=== PATIENT | male | born 1945 | race Caucasian/White ===

== ENCOUNTER 2016-09-09 15:17 | Emergency (ER) | payer OTHER ==
[~2016-09-09] VITALS: Ht 188 cm; Wt 120.5 kg
[2016-09-09 15:20] VITALS: BP 100/58; PULSE 67; RESP 12; TEMP 98.4; O2SAT 97
[2016-09-10] MEDS ORDERED: MORP1TAB24 PO (13:36)
[2016-09-10] MEDS ORDERED: OXYC-395 PO (13:36)
[2016-09-10] MEDS ORDERED: FERR325T PO (15:06)
[2016-09-10] MEDS ORDERED: PRAZ1 PO (15:06)
[2016-09-10] MEDS ORDERED: METO-309 PO (15:06)
[2016-09-10] MEDS ORDERED: MINO100 PO (15:06)
[2016-09-10] MEDS ORDERED: IPRAAER INH (15:06)
[2016-09-10] MEDS ORDERED: APRE1TAB3 PO (15:06)
[2016-09-10] MEDS ORDERED: AQUAOIN2 TOP (15:06)
[2016-09-10] MEDS ORDERED: GABA600T PO (15:06)
[2016-09-10] MEDS ORDERED: PROZ20CA11 PO (15:06)
[2016-09-10] MEDS ORDERED: POTA-163 PO (15:06)
[2016-09-10] MEDS ORDERED: LEVO125T4 PO (15:06)
[2016-09-10] MEDS ORDERED: FOLI1TAB4 PO (15:06)
[2016-09-10] MEDS ORDERED: SYMB160A INH (15:06)
[2016-09-10] MEDS ORDERED: OMEP20TA PO (15:06)
[2016-09-10] MEDS ORDERED: ALLO300T2 PO (15:06)
[2016-12-17] MEDS ORDERED: OMEP20TA PO (10:30)
[2016-12-17] MEDS ORDERED: FLUO20CA4 PO (10:30)
[2016-12-17] MEDS ORDERED: HYDR-3583 PO (10:30)
[2016-12-17] MEDS ORDERED: THERTAB15 PO (10:30)
[2016-12-17] MEDS ORDERED: SYMB160A INH (10:30)
[2016-12-17] MEDS ORDERED: MORP1TAB24 PO (10:30)
[2016-12-17] MEDS ORDERED: NEUR300C PO (10:30)
[2016-12-17] MEDS ORDERED: DOCU1CAP39 PO (10:30)
[2016-12-17] MEDS ORDERED: LEVE500 PO (10:30)
[2016-12-17] MEDS ORDERED: LEVO125T4 PO (10:30)
[2016-12-17] MEDS ORDERED: ALLO300T2 PO (10:30)
== END 2016-09-09 17:04 | disposition left against medical advice (07) ==
LOC: NED 15:17
DX: Z00.00 Encounter for general adult medical examination without abnormal findings (principal)
CPT/HCPCS: 99281

== ENCOUNTER 2016-09-10 11:14 | Inpatient (IN) | payer OTHER, MEDICARE ==
[~2016-09-10] VITALS: Ht 188 cm; Wt 116.7 kg
[2016-09-10 11:18] VITALS: BP 118/56; PULSE 62; RESP 14; TEMP 98.5; O2SAT 94
--- NOTE | 2016-09-10 13:27 | PD ---
HPI Chief Complaint: Musculoskeletal Complaint Time Seen by Provider: 13:23 Travel History International Travel<30 days: No Contact w/Intl Traveler<30days: No Traveled to known affect area: No History of Present Illness HPI Patient comes in at the advice of his orthopedic surgeon for vascular consult and possible admission for decompression. Patient reports approximately a month ago he fell injuring his right arm. Patient states he had x-rays done that showed no fracture. Patient states approximately 3 days later he lost all sensation from his elbow down. Patient reports it just feels like his arm is from elbow down. Patient went back to the emergency department was admitted and evaluated. 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 Patient states that he had an MRI done this past Friday by his orthopedic doctor after getting the results was instructed to come back to the emergency department for possible vascular surgery intervention. Patient reports he was on Coumadin prior to this injury but was stopped approximately 3 weeks ago while he was in the hospital. PFSH Past Medical History Hx Anticoagulant Therapy: Yes (came off of coumadin 10 days ago) Cardiovascular Problems: Yes (htn) COPD: Yes Gout: Yes Hypertension: Yes Musculoskeletal: Yes (SPINAL CORD INJURY) Respiratory: Yes (copd) Past Surgical History Appendectomy: Yes Eye Surgery: Yes (RT EYE REMOVED) Tonsillectomy: Yes Other Surgery: Yes (BENIGN GROWTH REMOVED FROM NECK) Social History Alcohol Use: No Tobacco Use: No Substance Use: No Allergies-Medications (Allergen,Severity, Reaction): Coded Allergies: No Known Allergies (Unverified , 09/10/16) Reported Meds & Prescriptions Reported Meds & Active Scripts Active Reported Aquaphor (Emollient) 1 Oin Oin 1 Applic TOP TID PRN Omeprazole 20 Mg Tab 40 Mg PO DAILY Lopressor (Metoprolol Tartrate) 50 Mg Tab 25 Mg PO DAILY Levothyroxine (Levothyroxine Sodium) 125 Mcg Tab 125 Mcg PO DAILY Folate (Folic Acid) 1 Mg Tab 1 Mg PO DAILY Allopurinol 300 Mg Tab 300 Mg PO DAILY Minocycline (Minocycline HCl) 100 Mg Cap 100 Mg PO BID Minipress (Prazosin HCl) 1 Mg Cap 1 Mg PO HS PRN *Hold if Blood Pressure less than 90/60Do not take with narcotic medications to avoid hypotension* Prozac (Fluoxetine HCl) 20 Mg Cap 60 Mg PO DAILY Potassium Chloride ER (Potassium Chloride) 20 Meq Tab 20 Meq PO DAILY Ferrous Sulfate 325 Mg Tab 325 Mg PO BID Gabapentin 600 Mg Tab 600 Mg PO TID Symbicort Inh (Budesonide/Formoterol Fumarate) 160-4.5 Mcg/Act Aero 2 Puff INH Q12HR Combivent Respimat Inh (Ipratropium-Albuterol Inh) 20-100 Intermediate/Act Aero 1 Puff INH QID Otezla (Apremilast) 30 Mg Tab 30 Mg PO BID Oxycodone (Oxycodone HCl) 10 Mg Tab 10 Mg PO BID Morphine ER (Morphine Sulfate) 15 Mg Tab 15 Mg PO BID Review of Systems Except as stated in HPI: all other systems reviewed are Neg Physical Exam Narrative GENERAL: Well-developed, overly nourished, in no acute distress, and non-ill appearing. SKIN: Warm and dry. HEAD: Atraumatic. Normocephalic. EYES: Pupils equal and round. EOMI. No scleral icterus. No injection or drainage. ENT: No nasal bleeding or discharge. Mucous membranes pink and moist. NECK: Trachea midline. No JVD. Supple. No nuclear rigidity. CARDIOVASCULAR: Radial pulses 2+ intact bilaterally. Murmur appreciated. Regular rate and irregular rhythm. RESPIRATORY: No accessory muscle use. No respiratory distress. Clear to auscultation. Breath sounds equal bilaterally. MUSCULOSKELETAL: No obvious deformities. No clubbing. No cyanosis. 1+ edema RUE distal to elbow. Absent range of motion right upper extremity distally and patient reports a sensation as well. NEUROLOGICAL: Awake and alert. No obvious cranial nerve deficits. Normal speech. PSYCHIATRIC: Appropriate mood and affect; insight and judgment normal. Data Data Last Documented VS Vital Signs Date Time Temp Pulse Resp B/P Pulse Ox O2 Delivery O2 Flow Rate FiO2 09/10/16 14:43 99 Room Air 09/10/16 14:43 18 09/10/16 12:57 73 09/10/16 11:29 09/10/16 11:18 98.5 Orders Electrocardiogram (09/10/16 14:12) Basic Metabolic Panel (Bmp) (09/10/16 14:12) Complete Blood Count With Diff (09/10/16 14:12) Prothrombin Time / Inr (Pt) (09/10/16 14:12) Act Partial Throm Time (Ptt) (09/10/16 14:12) Ecg Monitoring (09/10/16 14:12) Iv Access Insert/Monitor (09/10/16 14:12) Oximetry (09/10/16 14:12) Oxygen Administration (09/10/16 14:12) Sodium Chloride 0.9% Flush (Ns Flush) (09/10/16 14:15) Us Arm Venous Doppler (09/10/16 ) Consult Vascular Surgery (09/10/16 ) (Hub Use Only)Inp Phy Cons/Ref (09/10/16 ) Admit Order (Ed Use Only) (09/10/16 15:33) Labs Laboratory Tests Test 09/10/16 14:30 White Blood Count 5.8 TH/MM3 Red Blood Count 3.43 MIL/MM3 Hemoglobin 10.4 GM/DL Hematocrit 31.3 % Mean Corpuscular Volume 91.2 FL Mean Corpuscular Hemoglobin 30.2 PG Mean Corpuscular Hemoglobin 33.1 % Concent Red Cell Distribution Width 16.3 % Platelet Count 174 TH/MM3 Mean Platelet Volume 10.0 FL Neutrophils (%) (Auto) 70.2 % Lymphocytes (%) (Auto) 13.8 % Monocytes (%) (Auto) 9.9 % Eosinophils (%) (Auto) 5.2 % Basophils (%) (Auto) 0.9 % Neutrophils # (Auto) 4.1 TH/MM3 Lymphocytes # (Auto) 0.8 TH/MM3 Monocytes # (Auto) 0.6 TH/MM3 Eosinophils # (Auto) 0.3 TH/MM3 Basophils # (Auto) 0.1 TH/MM3 CBC Comment DIFF FINAL Differential Comment Prothrombin Time 11.4 SEC Prothromb Time International 1.0 RATIO Ratio Activated Partial 24.8 SEC Thromboplast Time Sodium Level 140 MEQ/L Potassium Level 4.2 MEQ/L Chloride Level 105 MEQ/L Carbon Dioxide Level 29.9 MEQ/L Anion Gap 5 MEQ/L Blood Urea Nitrogen 16 MG/DL Creatinine 1.02 MG/DL Estimat Glomerular Filtration 72 ML/MIN Rate Random Glucose 79 MG/DL Calcium Level 8.8 MG/DL MDM Medical Decision Making Medical Screen Exam Complete: Yes Emergency Medical Condition: Yes Interpretation(s) EKG reviewed by Dr. Dc, shows atrial fibrillation with ventricular rate of 64. No STEMI. Differential Diagnosis Nerve palsy, nerve compression, DVT, other Narrative Course Patient was seen and examined. Discussed patient with Dr. Deng, who came and evaluated the patient and recommended patient be admitted for further treatment and evaluation. Discussed patient with Dr. Dc, who is in agreement with plan of care and disposition. Discussed all findings and plan care of with patient, who is agreeable for admission. All questions were answered. Physician Communication Physician Communication [address] Deng, who states he'll come evaluate the patient in the emergency department. 1400 Dr. Deng at bedside evaluating patient and recommend having patient admitted to medicine for further treatment and evaluation. [address] Marie, on-call resident, who is agreeable to accept patient for Dr. Soliz. Diagnosis Primary Impression: Nerve palsy Admitting Information Admitting Physician Requests: Admit Condition: Stable Dominic Oh Sep 10, 2016 13:27
[2016-09-10] MEDS ORDERED: OXYC-395 PO (13:36)
[2016-09-10] MEDS ORDERED: MORP1TAB24 PO (13:36)
[2016-09-10] MEDS ORDERED: SODIUM CHLORIDE 0.9% FLUSH 5 ML FLUSH IVF PRN (14:15)
[2016-09-10 14:43] VITALS: RESP 18; O2SAT 100
[2016-09-10 14:51] LABS: AUTOMATED NEUTROPHIL # 4.1 TH/MM3 (1.8-7.7); BASOPHIL # 0.1 TH/MM3 (0-0.2); BASOPHIL % 0.9 % (0.0-2.0); EOSINOPHIL # 0.3 TH/MM3 (0-0.4); EOSINOPHIL % 5.2 % (0.0-4.0); HEMATOCRIT 31.3 % (39.0-51.0); HEMO FLAGS DIFF FINAL; LYMPH % 13.8 % (9.0-44.0); LYMPHOCYTE # 0.8 TH/MM3 (1.0-4.8); MEAN CELL VOLUME 91.2 FL (80.0-100.0); MEAN CORPUSCULAR HEMOGLOBIN 30.2 PG (27.0-34.0); MEAN CORPUSCULAR HGB CONC 33.1 % (32.0-36.0); MONO % 9.9 % (0.0-8.0); NEUT % 70.2 % (16.0-70.0); PLATELET COUNT 174 TH/MM3 (150-450); RED BLOOD COUNT 3.43 MIL/MM3 (4.50-5.90); RED CELL DISTRIBUTION WIDTH 16.3 % (11.6-17.2); WHITE BLOOD COUNT 5.8 TH/MM3 (4.0-11.0)
[2016-09-10 14:57] LABS: APTT (PATIENT) 24.8 SEC (24.3-30.1); PROTHROMBIN TIME - PATIENT 11.4 SEC (9.8-11.6)
[2016-09-10] MEDS ORDERED: MINO100 PO (15:06)
[2016-09-10] MEDS ORDERED: LEVO125T4 PO (15:06)
[2016-09-10] MEDS ORDERED: PROZ20CA11 PO (15:06)
[2016-09-10] MEDS ORDERED: POTA-163 PO (15:06)
[2016-09-10] MEDS ORDERED: APRE1TAB3 PO (15:06)
[2016-09-10] MEDS ORDERED: METO-309 PO (15:06)
[2016-09-10] MEDS ORDERED: IPRAAER INH (15:06)
[2016-09-10] MEDS ORDERED: SYMB160A INH (15:06)
[2016-09-10] MEDS ORDERED: AQUAOIN2 TOP (15:06)
[2016-09-10] MEDS ORDERED: OMEP20TA PO (15:06)
[2016-09-10] MEDS ORDERED: GABA600T PO (15:06)
[2016-09-10] MEDS ORDERED: PRAZ1 PO (15:06)
[2016-09-10] MEDS ORDERED: FERR325T PO (15:06)
[2016-09-10] MEDS ORDERED: ALLO300T2 PO (15:06)
[2016-09-10] MEDS ORDERED: FOLI1TAB4 PO (15:06)
[2016-09-10 15:23] LABS: BICARBONATE 29.9 MEQ/L (21.0-32.0); POTASSIUM 4.2 MEQ/L (3.5-5.1)
--- NOTE | 2016-09-10 15:23 | RADRPT ---
EXAM DATE/TIME: 09/10/2016 14:37 This report includes an Addendum and supersedes previous reports for this exam. [facility] COMPARISON: No previous studies available for comparison. INDICATIONS : Right arm swelling. MEDICAL HISTORY : Hypertension. Chronic obstructive pulmonary disease. Anticoagulant therapy. AFIB. Gout. SURGICAL HISTORY : Tonsillectomy. Appendectomy. Right eye removal. C3-C7 spinal fusion. ENCOUNTER: Initial ACUITY: 1 month PAIN SCORE: 3/10 LOCATION: Right arm. FINDINGS: There is spontaneous flow documented in the brachial, basilic, cephalic, axillary, and subclavian vei ns. The vessels are compressible and augmentation response is documented. No filling defects are se en. The flow is phasic with respiration. Direction of flow in the jugular vein is caudal. A complex, 11.7 x 5.4 x 9.0 cm collection is seen in the right axilla. Patient does report a previous history of trauma to the right arm and this may represent an axillary hematoma. The extensive size o f the hematoma could be compressing on the regional venous structures in contributing to the patient' s clinical symptoms. CONCLUSION: 1. No DVT. 2. However, complex, 1.7 x 5.4 x 9.0 cm left axillary collection may represent hematoma/seroma from p rior trauma. This could be compressing on regional venous structures in contributing to the patient's current clinical symptoms. Marquis Tariq MD on September 10, 2016 at 15:19 Board Certified Radiologist. This report was verified electronically. ADDENDUM: Please note, in conclusion #2 above, this should refer to the right axilla, not the left. Marquis Tariq MD on September 11, 2016 at 11:24 Board Certified Radiologist. This report was verified electronically.
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
[2016-09-10] MEDS ORDERED: SODIUM CHLORIDE 0.9% FLUSH 5 ML FLUSH FLUSH PRN (16:15)
[2016-09-10] MEDS ORDERED: NALOXONE HCL 0.4 MG/ML AMP IV PRN (16:15)
[2016-09-10] MEDS ORDERED: HYDROmorphone HCL PF 1 MG/ML VIAL IV PUSH PRN (16:45)
[2016-09-10] MEDS: LACTATED RINGER'S 1000 ML INJ 1,000 ML IV SCH (17:00)
[2016-09-10] MEDS ORDERED: PRAZOSIN HCL 1 MG CAP PO PRN (17:00)
[2016-09-10] MEDS ORDERED: DOCUSATE SODIUM 50 MG/SENNA 8.6 MG TAB PO PRN (17:00)
[2016-09-10] MEDS ORDERED: AQUAPHOR OINT 50 APPLIC/50 GM TUBE TOP PRN (17:00)
[2016-09-10] MEDS ORDERED: cloNIDine HCL 0.1 MG TAB PO PRN (17:00)
[2016-09-10] MEDS ORDERED: ACETAMINOPHEN 325 MG TAB PO PRN (17:00)
[2016-09-10] MEDS ORDERED: ONDANSETRON HCL 4 MG/2 ML VIAL IVP PRN (17:00)
[2016-09-10] MEDS: GABAPENTIN 300 MG CAP PO SCH (18:00)
[2016-09-10] MEDS: ALBUTEROL SULFATE 90 MCG/ACT HFA 8 GM INHALER INH SCH ×2 (18:00→23:00)
[2016-09-10] MEDS ORDERED: NON-FORMULARY DRUG (Ipratropium-Albuterol Inh (Combivent Respimat Inh) 1 PUFF) INH SCH (18:00)
[2016-09-10] MEDS ORDERED: GADODIAMIDE PF 287 MG/ML 5 ML VIAL (for RAD MRI) IV ONE (18:35)
[2016-09-10 19:02] VITALS: BP 150/76; PULSE 71; RESP 18; O2SAT 98
--- NOTE | 2016-09-10 19:08 | RADRPT ---
EXAM DATE/TIME: 09/10/2016 18:07 This report includes an Addendum and supersedes previous reports for this exam. [facility] COMPARISON: No previous studies available for comparison. INDICATIONS : Trauma. Unable to move right arm after fall. See notes below. CONTRAST: 25 cc Omniscan (gadodiamide) IV MEDICAL HISTORY : Chronic obstructive pulmonary disease. Hypertension. SURGICAL HISTORY : Appendectomy. Fusion, cervical. Tonsillectomy. ENCOUNTER: Initial ACUITY: 2 day PAIN SCORE: 0/10 LOCATION: Right arm TECHNIQUE: Multiplanar multisequence MRI examination of the humerus was performed with and without contrast. FINDINGS: There is a large complex 16.4 x 7.5 x 9.1 cm fluid collection centered in left axillary region and ex tending distally along the medial shaft of the humerus. Fluid collection is predominantly between the biceps and triceps musculature medially. Complex fluid collection has increased T1 signal and also i ncreased T2 signal with minimal rim enhancement postcontrast. Finding is most characteristic of a axi llary hematoma, especially given the history of trauma. There is extrinsic compression on the axillar y and brachial venous structures and some displacement of the vascular structures posteriorly. CONCLUSION: 1. Large left axillary hematoma extending up to 16.4 x 7.5 x 9.1 cm in dimension and extending inferi olive along the medial aspect of the humerus. There is displacement and extrinsic impression on the ax illary and brachial venous structures and posterior displacement of the arteries. No acute bony abnor mality. Yeison Davila MD on September 10, 2016 at 18:59 Board Certified Radiologist. This report was verified electronically. ADDENDUM: Please note, this study was of the right axilla and upper extremity. As such, in conclusion #1, the h ematoma involves the right axilla. Marquis Tariq MD on September 11, 2016 at 11:27 Board Certified Radiologist. This report was verified electronically.
[2016-09-10 19:52] VITALS: BP 141/68; PULSE 69; RESP 16; TEMP 98.4; O2SAT 99
[2016-09-10] MEDS: SODIUM CHLORIDE 0.9% FLUSH 5 ML FLUSH FLUSH SCH (21:00)
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
--- NOTE | 2016-09-10 21:49 | RADRPT ---
EXAM DATE/TIME: 09/10/2016 20:47 [facility] COMPARISON: No previous studies available for comparison. INDICATIONS : Evaluate for pneumonia, pneumothorax, or communicable disease. Pre op for vessel surgery. MEDICAL HISTORY : None. SURGICAL HISTORY : None. ENCOUNTER: Initial ACUITY: 1 day PAIN SCORE: 0/10 LOCATION: Bilateral chest FINDINGS: PA and lateral views of the chest demonstrate a mild basilar airspace disease and small effusions. He art size mildly enlarged. Atherosclerotic aorta. CONCLUSION: 1. Mild basilar airspace disease which may represent atelectasis with small effusions. Yeison Davila MD on September 10, 2016 at 21:43 Board Certified Radiologist. This report was verified electronically.
[2016-09-10] MEDS: FERROUS SULFATE 325 MG (65 MG ELEMENTAL IRON) TAB PO SCH (22:16)
[2016-09-10 22:52] VITALS: BP 116/94; PULSE 83; RESP 18; TEMP 97; O2SAT 98
[2016-09-10] MEDS: BUDESONIDE-FORMOTEROL 160/4.5 MCG INHALER INH SCH (23:00)
[2016-09-10] MEDS: MORPHINE SULFATE 15 MG CONTROLLED RELEASE TAB PO SCH (23:09)
[2016-09-11] VITALS: BP 94/72; PULSE 75; RESP 18; TEMP 96.2; O2SAT 99
[2016-09-11 04:00] VITALS: BP 123/73; PULSE 72; RESP 18; TEMP 97.6; O2SAT 96
[2016-09-11] MEDS: LEVOTHYROXINE SODIUM 125 MCG TAB PO SCH (05:19)
[2016-09-11 08:00] VITALS: BP 149/81; PULSE 77; RESP 18; TEMP 97; O2SAT 97
[2016-09-11 08:33] LABS: AUTOMATED NEUTROPHIL # 2.9 TH/MM3 (1.8-7.7); BASOPHIL # 0.1 TH/MM3 (0-0.2); BASOPHIL % 1.2 % (0.0-2.0); EOSINOPHIL # 0.3 TH/MM3 (0-0.4); EOSINOPHIL % 6.7 % (0.0-4.0); HEMATOCRIT 30.6 % (39.0-51.0); HEMO FLAGS DIFF FINAL; LYMPH % 19.1 % (9.0-44.0); LYMPHOCYTE # 0.9 TH/MM3 (1.0-4.8); MEAN CELL VOLUME 90.1 FL (80.0-100.0); MEAN CORPUSCULAR HGB CONC 33.2 % (32.0-36.0); MONO % 13.1 % (0.0-8.0); NEUT % 59.9 % (16.0-70.0); PLATELET COUNT 160 TH/MM3 (150-450); RED BLOOD COUNT 3.39 MIL/MM3 (4.50-5.90); RED CELL DISTRIBUTION WIDTH 15.8 % (11.6-17.2); WHITE BLOOD COUNT 4.8 TH/MM3 (4.0-11.0)
--- NOTE | 2016-09-11 08:46 | HHI.FPPN ---
Subjective Remarks FM Attending Note: Patient seen and examined. S: Chart and all resident physician notes reviewed. In summary this is a 71 year old male who was admitted with an admission diagnosis of a right arm Nerve Palsy. He reports an initial injury about 4 weeks [address] outlined [address] Miguel, but subsequent minor injuries also occurred. Has not been able to move his right arm for at least 2 weeks. MRI shows large hematoma of the upper arm. No significant pain noted. Long h/o atrial fibrillation for which he has been on warfarin therapyl Objective Vitals Vital Signs Date Time Temp Pulse Resp B/P Pulse Ox O2 Delivery O2 Flow Rate FiO2 09/11/16 08:00 97.0 77 18 149/81 97 09/11/16 04:00 97.6 72 18 123/73 96 09/11/16 00:00 96.2 75 18 94/72 99 09/10/16 22:52 97.0 83 18 116/94 98 09/10/16 19:52 98.4 69 16 141/68 99 Room Air 09/10/16 19:02 71 18 150/76 98 Room Air 09/10/16 14:43 99 Room Air 09/10/16 14:43 18 100 Room Air 09/10/16 12:57 73 18 09/10/16 11:29 09/10/16 11:18 98.5 62 14 118/56 94 Room Air I/O 09/10/16 09/10/16 09/10/16 09/11/16 09/11/16 09/11/16 07:00 15:00 23:00 07:00 15:00 23:00 Intake Total 482 ml Output Total 420 ml Balance 62 ml Intake IV Total 482 ml Output Urine Total 420 ml # Voids 1 # Bowel Movements 1 Result Diagram: 09/10/16 1430 09/10/16 1430 Other Results Item Value Date Time Prothrombin Time 11.4 SEC 09/10/16 1430 Prothromb Time International Ratio 1.0 RATIO 09/10/16 1430 Activated Partial Thromboplast Time 24.8 SEC 09/10/16 1430 Imaging Last 48 hours Impressions Upper Extremity Ultrasound 09/10/16 0000 Signed Impressions: Service Date/Time: Saturday, September 10, 2016 14:37 - CONCLUSION: 1. No DVT. 2. However, complex, 1.7 x 5.4 x 9.0 cm left axillary collection may represent hematoma/seroma from prior trauma. This could be compressing on regional venous structures in contributing to the patient's current clinical symptoms. Marquis Tariq MD ADDENDUM: Please note, in conclusion #2 above, this should refer to the right axilla, not the left. Marquis Tariq MD Upper Extremity MRI 09/10/16 0000 Signed Impressions: Service Date/Time: Saturday, September 10, 2016 18:07 - CONCLUSION: 1. Large left axillary hematoma extending up to 16.4 x 7.5 x 9.1 cm in dimension and extending inferiorly along the medial aspect of the humerus. There is displacement and extrinsic impression on the axillary and brachial venous structures and posterior displacement of the arteries. No acute bony abnormality. Yeison Davila MD ADDENDUM: Please note, this study was of the right axilla and upper extremity. As such, in conclusion #1, the hematoma involves the right axilla. Marquis Tariq MD Chest X-Ray 09/10/16 Signed Impressions: Service Date/Time: Saturday, September 10, 2016 20:47 - CONCLUSION: 1. Mild basilar airspace disease which may represent atelectasis with small effusions. Yeison Davila MD Objective Remarks O. CONSTITUTIONAL/GEN: normally nourished with elevated BMI, in NAD. EYES: conjunctiva normal, PERRLA, EOMI. LUNGS: clear A-P, respiratory effort is normal. CARDIOVASCULAR: IRR without murmur or gallop. 1+ edema of LLE with stasis related skin changes, trace edema of RLE. No calf tenderness. GI/ABD: soft without masses, without organomegaly. NEURO: deficit of motor function of entire right arm. SKIN: color normal, no rashes noted. HEME/LYMPH: no bruising, petechia or significant adenopathy MUSC: back is normal in appearance. Palpable mass over medial upper arm in area of hematoma noted on MRI. PSYCH/MENTAL STATUS: Alert and oriented x 3. A/P Assessment and Plan 71-year-old male with a complicated past medical history who presents with complete right lower arm palsy 3 weeks Problem List: (1) Nerve palsy Status: Acute Plan: Patient appears to have complete paralysis of his RLE from the elbow down with involvement of the radial, median, and ulnar nerves. Recent MRI w/o contrast reportedly revealed a large hematoma in the right arm with possible nerve compression. Intervention by vascular surgery was recommended for treatment. Vascular surgery has been consulted, Dr. Marinelli recommends MRI w contrast to further eval as well as consultation by neurology. US of right arm shows no evidence of clot. Will proceed with following plan: - Admit to inpatient - Consult vascular surgery, Dr. Marinelli-- appreciate rec's - Consult neurology - NPO in anticipation for surgery - Continue CHASER HELPER morphine ER 15mg BID - Percocet 10/325 q6hrs prn pain 4-10 - Dilaudid 1mg prn breakthrough pain - Consult PT/OT - Consult case management as patient will likely require inpatient rehab following intervention 09/11/16 Patient has been seen by vascular surgery. Scheduled for drainage procedure to attempt to decrease pressure from hematoma. (2) COPD (chronic obstructive pulmonary disease) Status: Chronic Plan: Currently well controlled. - Continue CHASER HELPER Symbicort 2 puffs twice a day - Continue CHASER HELPER Combivent 1 puff 4 times a day (3) Atrial fibrillation Status: Chronic Plan: Currently rate controlled - Holding home Coumadin due to hematoma - Continue CHASER HELPER Lopressor 25 mg daily (4) Gout Status: Chronic Plan: No evidence of flare. - Continue CHASER HELPER allopurinol 300 mg daily (5) Depression Status: Chronic Plan: Mood is currently stable without suicidal ideation - Continue CHASER HELPER Prozac 60 mg daily (6) Hypothyroidism Status: Chronic Plan: Currently stable - Continue CHASER HELPER levothyroxine 125 g daily (7) Psoriasis Status: Chronic Plan: No evidence of flare - Continue CHASER HELPER Otezla 30mg BID (8) GERD (gastroesophageal reflux disease) Status: Chronic Plan: Continue CHASER HELPER omeprazole 40 mg daily (9) BPH (benign prostatic hyperplasia) Status: Chronic Plan: Continue CHASER HELPER prazosin 1 mg daily (10) FEN/PPX Status: Chronic Plan: FEN: - IV LR @ 100ml/hr - Monitor replace electrolytes as needed - NPO in event of surgery PPX: - Bilateral lower extremity SCDs - Zofran prn for nausea - Tylenol prn for fever Charlie Soliz MD Sep 11, 2016 08:46
[2016-09-11 08:57] LABS: BICARBONATE 28.3 MEQ/L (21.0-32.0)
[2016-09-11] MEDS: TIOTROPIUM BROMIDE 18 MCG INH INH SCH (09:00)
[2016-09-11] MEDS: ALBUTEROL SULFATE 90 MCG/ACT HFA 8 GM INHALER INH SCH ×3 (09:00→23:23)
[2016-09-11] MEDS: BUDESONIDE-FORMOTEROL 160/4.5 MCG INHALER INH SCH ×2 (09:00→23:23)
[2016-09-11] MEDS: PANTOPRAZOLE SOD 20 MG DELAYED RELEASE TAB PO SCH (09:40)
[2016-09-11] MEDS: FLUoxetine HCL 20 MG CAP PO SCH (09:41)
[2016-09-11] MEDS: METOPROLOL TARTRATE 25 MG TAB PO SCH (09:41)
[2016-09-11] MEDS: GABAPENTIN 300 MG CAP PO SCH ×3 (09:42→21:43)
[2016-09-11] MEDS: POTASSIUM CHLORIDE 20 MEQ CONTROLLED RELEASE TAB PO SCH (09:42)
[2016-09-11] MEDS: FOLIC ACID 1 MG TAB PO SCH (09:42)
[2016-09-11] MEDS: FERROUS SULFATE 325 MG (65 MG ELEMENTAL IRON) TAB PO SCH ×2 (09:42→21:43)
[2016-09-11] MEDS: ALLOPURINOL 300 MG TAB PO SCH (09:42)
[2016-09-11] MEDS: MORPHINE SULFATE 15 MG CONTROLLED RELEASE TAB PO SCH ×2 (09:42→21:43)
[2016-09-11] MEDS: SODIUM CHLORIDE 0.9% FLUSH 5 ML FLUSH FLUSH SCH ×2 (09:57→21:44)
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
[2016-09-11 12:00] VITALS: BP 142/82; PULSE 71; RESP 18; TEMP 97.6; O2SAT 97
[2016-09-11] MEDS ORDERED: ceFAZolin 2 GM/50 ML BAG IV ONE (12:00)
[2016-09-11] MEDS ORDERED: ePHEDrine/NS 25 MG/5 ML SYR IV ONE (12:00)
[2016-09-11] MEDS ORDERED: ONDANSETRON HCL 4 MG/2 ML VIAL IV PUSH ONE (12:00)
[2016-09-11] MEDS ORDERED: PROPOFOL 200 MG/20 ML AMP IV ONE (12:00)
[2016-09-11] MEDS: LACTATED RINGER'S 1000 ML INJ 1,000 ML IV SCH ×2 (12:25→13:00)
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
[2016-09-11 16:00] VITALS: BP 138/77; PULSE 70; RESP 18; TEMP 98; O2SAT 95
[2016-09-11] MEDS ORDERED: FAMOTIDINE 20 MG/2 ML VIAL ONE (16:46)
[2016-09-11] MEDS ORDERED: DEXAMETHASONE SOD PHOS 4 MG/ML VIAL ONE (16:46)
[2016-09-11] MEDS ORDERED: METOCLOPRAMIDE HCL 10 MG/2 ML VIAL ONE (17:31)
[2016-09-11] MEDS ORDERED: MIDAZOLAM HCL 2 MG/2 ML VIAL ONE (18:39)
[2016-09-11] MEDS ORDERED: *morphine SULFATE 8 MG/ML PERIprocedure ONLY ONE (19:02)
[2016-09-11 20:50] VITALS: BP 117/64; PULSE 84; RESP 18; TEMP 98.3; O2SAT 94
--- NOTE | 2016-09-11 22:46 | EKG ---
Date Performed: 09/10/2016 Time Performed: 15:01:22 PTAGE: 71 years EKG: ATRIAL FIBRILLATION LOW QRS VOLTAGE POSSIBLE ANTERIOR MYOCARDIAL INFARCTION ABNORMAL ECG NO PREVIOUS TRACING DOCTOR: Shivam Angeles Interpretating Date/Time 09/11/2016 22:45:49
[2016-09-11] MEDS: CLINDAMYCIN INJ 600 MG in SODIUM CHLORIDE 0.9% INJ 100 ML IV SCH (23:23)
[2016-09-12] VITALS: BP 113/55; PULSE 82; RESP 17; TEMP 97.9; O2SAT 94
[2016-09-12 04:00] VITALS: BP 109/62; PULSE 80; RESP 17; TEMP 95.2; O2SAT 95
[2016-09-12] MEDS: oxyCODONE/ACETAMINOPHEN 10 MG/325 MG TAB PO PRN ×2 (04:18→11:25)
[2016-09-12] MEDS: CLINDAMYCIN INJ 600 MG in SODIUM CHLORIDE 0.9% INJ 100 ML IV SCH ×2 (04:18→11:23)
[2016-09-12] MEDS: LEVOTHYROXINE SODIUM 125 MCG TAB PO SCH (04:18)
[2016-09-12 05:17] LABS: BICARBONATE 26.4 MEQ/L (21.0-32.0); POTASSIUM 4.2 MEQ/L (3.5-5.1)
[2016-09-12 05:19] LABS: AUTOMATED NEUTROPHIL # 3.9 TH/MM3 (1.8-7.7); BASOPHIL % 0.5 % (0.0-2.0); EOSINOPHIL % 0.2 % (0.0-4.0); HEMO FLAGS DIFF FINAL; LYMPH % 9.2 % (9.0-44.0); LYMPHOCYTE # 0.4 TH/MM3 (1.0-4.8); MEAN CELL VOLUME 90.6 FL (80.0-100.0); MEAN CORPUSCULAR HEMOGLOBIN 29.5 PG (27.0-34.0); MEAN CORPUSCULAR HGB CONC 32.6 % (32.0-36.0); MONO % 5.6 % (0.0-8.0); NEUT % 84.5 % (16.0-70.0); PLATELET COUNT 162 TH/MM3 (150-450); RED BLOOD COUNT 3.31 MIL/MM3 (4.50-5.90); RED CELL DISTRIBUTION WIDTH 15.5 % (11.6-17.2); WHITE BLOOD COUNT 4.6 TH/MM3 (4.0-11.0)
[2016-09-12] MEDS: FOLIC ACID 1 MG TAB PO SCH (07:48)
[2016-09-12] MEDS: ALLOPURINOL 300 MG TAB PO SCH (07:48)
[2016-09-12] MEDS: MORPHINE SULFATE 15 MG CONTROLLED RELEASE TAB PO SCH ×2 (07:49→21:49)
[2016-09-12] MEDS: GABAPENTIN 300 MG CAP PO SCH ×3 (07:49→16:51)
[2016-09-12] MEDS: FERROUS SULFATE 325 MG (65 MG ELEMENTAL IRON) TAB PO SCH ×2 (07:49→21:49)
[2016-09-12] MEDS: PANTOPRAZOLE SOD 20 MG DELAYED RELEASE TAB PO SCH (07:49)
[2016-09-12] MEDS: POTASSIUM CHLORIDE 20 MEQ CONTROLLED RELEASE TAB PO SCH (07:49)
[2016-09-12] MEDS: METOPROLOL TARTRATE 25 MG TAB PO SCH (07:50)
[2016-09-12] MEDS: FLUoxetine HCL 20 MG CAP PO SCH (07:50)
[2016-09-12] MEDS: BUDESONIDE-FORMOTEROL 160/4.5 MCG INHALER INH SCH ×2 (07:51→21:49)
[2016-09-12] MEDS: ALBUTEROL SULFATE 90 MCG/ACT HFA 8 GM INHALER INH SCH ×4 (07:52→21:50)
[2016-09-12] MEDS: TIOTROPIUM BROMIDE 18 MCG INH INH SCH (07:52)
[2016-09-12] MEDS: SODIUM CHLORIDE 0.9% FLUSH 5 ML FLUSH FLUSH SCH ×2 (07:56→21:55)
[2016-09-12 08:00] VITALS: BP 115/66; PULSE 94; RESP 19; TEMP 98.6; O2SAT 95
--- NOTE | 2016-09-12 08:43 | HHI.FPPN ---
Subjective Remarks Patient seen and examined yesterday. Underwent aspiration yesterday of hematoma. Has drain in place. He states he feels that the swelling has gone down , but has no change in sensation or motor function. Otherwise, feels well and denies other concerns/complaints. Denies chest pain, SOB, abdominal pain, leg pain. (Jorge Coleman MD R1) Objective Vitals Vital Signs Date Time Temp Pulse Resp B/P Pulse Ox O2 Delivery O2 Flow Rate FiO2 09/12/16 04:00 95.2 80 17 109/62 95 09/12/16 00:00 97.9 82 17 113/55 94 09/11/16 22:13 Nasal Cannula 2.00 09/11/16 20:50 98.3 84 18 117/64 94 09/11/16 20:30 97.8 87 16 138/88 95 Room Air 09/11/16 20:00 85 15 137/86 94 Room Air 09/11/16 19:45 84 15 139/85 94 Room Air 09/11/16 19:30 82 15 141/86 99 Nasal Cannula 2 09/11/16 19:15 79 14 140/82 98 Nasal Cannula 2 09/11/16 19:07 15 09/11/16 19:00 78 14 145/84 96 Nasal Cannula 2 09/11/16 18:45 74 13 148/88 100 Nasal Cannula 3 09/11/16 18:30 98.4 69 12 140/85 99 Nasal Cannula 3 09/11/16 16:00 98.0 70 18 138/77 95 09/11/16 12:00 97.6 71 18 142/82 97 I/O 09/11/16 09/11/16 09/11/16 09/12/16 09/12/16 09/12/16 07:00 15:00 23:00 07:00 15:00 23:00 Intake Total 482 ml 0 ml 1220 ml 340 ml Output Total 420 ml 565 ml 180 ml Balance 62 ml 0 ml 655 ml 160 ml Intake Oral 0 ml 720 ml 240 ml IV Total 482 ml 100 ml 100 ml Other 400 ml Output Urine Total 420 ml 550 ml 150 ml Drainage Total 10 ml 30 ml Estimated Blood Loss 5 ml # Voids 1 5 # Bowel Movements 1 0 (Jorge Coleman MD R1) Result Diagram: 2/9/17 0410 2/9/17 0410 Objective Remarks O. CONSTITUTIONAL/GEN: normally nourished with elevated BMI, in NAD. LUNGS: clear A-P, respiratory effort is normal. CARDIOVASCULAR: RRR without murmur or gallop. 1+ edema of LLE with stasis related skin changes, trace edema of RLE. No calf tenderness. GI/ABD: soft without masses, without organomegaly. NEURO: deficit of motor function of entire right arm from elbow down. No sensation from elbow down. HEME/LYMPH: no bruising, petechia or significant adenopathy MUSC: back is normal in appearance. Palpable mass over medial upper arm in area of hematoma noted on MRI. POLINA drain in place with sanguinous fluid PSYCH/MENTAL STATUS: Alert and oriented x 3. (Jorge Coleman MD R1) A/P Assessment and Plan 71-year-old male with a complicated past medical history who presents with complete right lower arm palsy 3 weeks. S/p drain placement of hematoma. Discharge Planning Awaiting vascular surgery recommendations. Will need OT on discharge. (Jorge Coleman MD R1) Attending Attestation Case reviewed and discussed with the resident team. Agree with plan of care as discussed with me and documented in the resident note. (Charlie Soliz MD) Problem List: (1) Nerve palsy Status: Acute Plan: Patient appears to have complete paralysis of his RLE from the elbow down with involvement of the radial, median, and ulnar nerves. Recent MRI w/o contrast reportedly revealed a large hematoma in the right arm with possible nerve compression. POD#1 from aspiration and drain placement - Consulted vascular surgery, Dr. Deng, appreciate rec's - On Clindamycin 600mg q8H IV - Consulted neurology, appreciate recs, would like to f/u in a couple weeks - Continue PLUNGER SHOVEL OPERATOR morphine ER 15mg BID - Percocet 10/325 q6hrs prn pain 4-10 - Dilaudid 1mg prn breakthrough pain - Consult PT/OT - Consult case management as patient will likely require inpatient rehab following intervention (2) COPD (chronic obstructive pulmonary disease) Status: Chronic Plan: Currently well controlled. - Continue PLUNGER SHOVEL OPERATOR Symbicort 2 puffs twice a day - Continue PLUNGER SHOVEL OPERATOR Combivent 1 puff 4 times a day (3) Atrial fibrillation Status: Chronic Plan: Currently rate controlled - Holding home Coumadin due to hematoma - Continue PLUNGER SHOVEL OPERATOR Lopressor 25 mg daily (4) Gout Status: Chronic Plan: No evidence of flare. - Continue PLUNGER SHOVEL OPERATOR allopurinol 300 mg daily (5) Depression Status: Chronic Plan: Mood is currently stable without suicidal ideation - Continue PLUNGER SHOVEL OPERATOR Prozac 60 mg daily (6) Hypothyroidism Status: Chronic Plan: Currently stable - Continue PLUNGER SHOVEL OPERATOR levothyroxine 125 g daily (7) Psoriasis Status: Chronic Plan: No evidence of flare - Continue PLUNGER SHOVEL OPERATOR Otezla 30mg BID (8) GERD (gastroesophageal reflux disease) Status: Chronic Plan: Continue PLUNGER SHOVEL OPERATOR omeprazole 40 mg daily (9) BPH (benign prostatic hyperplasia) Status: Chronic Plan: Continue PLUNGER SHOVEL OPERATOR prazosin 1 mg daily (10) FEN/PPX Status: Chronic Plan: FEN: - none, tolerating PO - Monitor replace electrolytes as needed - regular diet PPX: - Bilateral lower extremity SCDs - Zofran prn for nausea - Tylenol prn for fever (Jorge Coleman MD R1) Problem Qualifiers (1) COPD (chronic obstructive pulmonary disease): Qualified Code: J44.9 - Chronic obstructive pulmonary disease, unspecified COPD type (2) Atrial fibrillation: Qualified Code: I48.2 - Chronic atrial fibrillation (3) Gout: Qualified Code: M10.9 - Gout, unspecified cause, unspecified chronicity, unspecified site Jorge Coleman MD R1 Sep 12, 2016 08:43 Charlie Soliz MD Sep 12, 2016 14:07
[2016-09-12 12:07] VITALS: O2SAT 95
--- NOTE | 2016-09-12 17:43 | PD.CAR.PN ---
CVT Progress Note Subjective/Hospital Course: Patient doing very well today Underwent yesterday drainage of a large hematoma of the axilla and right upper arm with about 400 cc of liquefied blood in it This is now decompressed and arm is soft POLINA drainage is down to 50 cc per 24 hours Patient feels much better and swelling is significantly decreased Patient still has palate see off median and radial nerves as well as part of the ulnar nerve distribution I will DC the POLINA tomorrow and patient will be discharged with instructions for follow-up and OT therapy Objective: Vital Signs Date Time Temp Pulse Resp B/P Pulse Ox O2 Delivery O2 Flow Rate FiO2 09/12/16 12:07 95 Nasal Cannula 2.00 09/12/16 08:00 98.6 94 19 115/66 95 09/12/16 04:00 95.2 80 17 109/62 95 09/12/16 00:00 97.9 82 17 113/55 94 09/11/16 22:13 Nasal Cannula 2.00 09/11/16 20:50 98.3 84 18 117/64 94 09/11/16 20:30 97.8 87 16 138/88 95 Room Air 09/11/16 20:00 85 15 137/86 94 Room Air 09/11/16 19:45 84 15 139/85 94 Room Air 09/11/16 19:30 82 15 141/86 99 Nasal Cannula 2 09/11/16 19:15 79 14 140/82 98 Nasal Cannula 2 09/11/16 19:07 15 09/11/16 19:00 78 14 145/84 96 Nasal Cannula 2 09/11/16 18:45 74 13 148/88 100 Nasal Cannula 3 09/11/16 18:30 98.4 69 12 140/85 99 Nasal Cannula 3 Result Diagram: 09/12/1640909/12/16409 Slava Deng MD Sep 12, 2016 17:43
--- NOTE | 2016-09-12 19:45 | MP ---
cc: SANDRITA DUMONT MD DATE OF SURGERY 09/11/16 PREOPERATIVE DIAGNOSIS Large hematoma of the right axilla with compression of the brachial plexus and the nerves. swelling of the right arm. POSTOPERATIVE DIAGNOSIS Large hematoma of the right axilla with compression of the brachial plexus and the nerves. swelling of the right arm. PROCEDURE Evacuation large hematoma of right axilla and upper arm. SURGEON Stone Dumont MD ANESTHESIA General. ESTIMATED BLOOD LOSS 10 mL evacuated about 400 mL of partial liquefied blood. PROCEDURE IN DETAIL The patient was prepped and draped usual fashion and area palpated. There is a large hematoma encompassing right axilla and right upper arm. Incision was made in longitudinal oblique fashion and below the axillary crease, deepened down and very carefully avoiding any nerves or vascular structures. The hematoma is exposed and entered. About 400 mL of liquefied brown fluid is obtained which is cultured. Then the suction is inserted and then area irrigated with copious amounts of saline with commission specialist to extract all the old clots. Once this was done, a counter incision is made distally above the elbow and then the Win-Najera 10 flat drain is inserted through this. Once more, area irrigated to make sure there is no more retained material and then incision was closed in the axilla with 2-0 Vicryl running stitch and 3-0 Prolene interrupted stitches. The patient tolerated procedure well. Dressing applied. Sandrita NOLAND/ /9:15 PM /7:39 PM
[2016-09-12 20:00] VITALS: BP 135/66; PULSE 66; RESP 17; TEMP 96.8; O2SAT 96
[2016-09-13] VITALS: BP 127/62; PULSE 66; RESP 17; TEMP 97.1; O2SAT 97
[2016-09-13] MEDS: oxyCODONE/ACETAMINOPHEN 10 MG/325 MG TAB PO PRN ×2 (05:19→11:27)
[2016-09-13] MEDS: LEVOTHYROXINE SODIUM 125 MCG TAB PO SCH (05:19)
[2016-09-13 05:24] LABS: AUTOMATED NEUTROPHIL # 3.8 TH/MM3 (1.8-7.7); BASOPHIL % 0.9 % (0.0-2.0); EOSINOPHIL # 0.1 TH/MM3 (0-0.4); EOSINOPHIL % 2.2 % (0.0-4.0); HEMO FLAGS DIFF FINAL; MEAN CELL VOLUME 90.9 FL (80.0-100.0); MEAN CORPUSCULAR HEMOGLOBIN 29.6 PG (27.0-34.0); MEAN CORPUSCULAR HGB CONC 32.6 % (32.0-36.0); MONO % 10.9 % (0.0-8.0); PLATELET COUNT 134 TH/MM3 (150-450); RED CELL DISTRIBUTION WIDTH 15.9 % (11.6-17.2); WHITE BLOOD COUNT 5.5 TH/MM3 (4.0-11.0)
[2016-09-13 05:48] LABS: BICARBONATE 26.8 MEQ/L (21.0-32.0); POTASSIUM 4.1 MEQ/L (3.5-5.1)
[2016-09-13] MEDS: POTASSIUM CHLORIDE 20 MEQ CONTROLLED RELEASE TAB PO SCH (07:47)
[2016-09-13] MEDS: PANTOPRAZOLE SOD 20 MG DELAYED RELEASE TAB PO SCH (07:47)
[2016-09-13] MEDS: FERROUS SULFATE 325 MG (65 MG ELEMENTAL IRON) TAB PO SCH (07:47)
[2016-09-13] MEDS: METOPROLOL TARTRATE 25 MG TAB PO SCH (07:47)
[2016-09-13] MEDS: MORPHINE SULFATE 15 MG CONTROLLED RELEASE TAB PO SCH (07:47)
[2016-09-13] MEDS: ALLOPURINOL 300 MG TAB PO SCH (07:47)
[2016-09-13] MEDS: FOLIC ACID 1 MG TAB PO SCH (07:47)
[2016-09-13] MEDS: GABAPENTIN 300 MG CAP PO SCH ×2 (07:47→11:22)
[2016-09-13] MEDS: FLUoxetine HCL 20 MG CAP PO SCH (07:48)
[2016-09-13] MEDS: TIOTROPIUM BROMIDE 18 MCG INH INH SCH (07:50)
[2016-09-13] MEDS: BUDESONIDE-FORMOTEROL 160/4.5 MCG INHALER INH SCH (07:50)
[2016-09-13] MEDS: ALBUTEROL SULFATE 90 MCG/ACT HFA 8 GM INHALER INH SCH ×2 (07:50→11:26)
[2016-09-13 08:00] VITALS: BP 138/93; PULSE 71; RESP 16; TEMP 95.6; O2SAT 94
[2016-09-13] MEDS: SODIUM CHLORIDE 0.9% FLUSH 5 ML FLUSH FLUSH SCH (08:01)
[2016-09-13] MEDS ORDERED: RESP: ALBUTEROL 2.5 MG/IPRATROPIUM 0.5 MG NEB (PRN) ONE (08:54)
[2016-09-13 08:55] VITALS: O2SAT 98
--- NOTE | 2016-09-13 09:13 | HHI.FPPN ---
Subjective Remarks Afebrile vital signs stable. No acute events overnight. Patient reports improvement in swelling and movement of his right arm. He does admit to still having no feeling in his fingers and wrist or ability to move his fingers or wrist. He is no longer having severe pain in his right arm. He still has some swelling and tenderness in the back of the upper arm but overall it is greatly improved. Some serosanguineous fluid in the POLINA drain noted. Patient reports that his COPD is acting up and he is getting slightly short of breath. Requested breathing treatment which was put in for him. Otherwise he agrees with the plan of removing drain today and discharged home with occupational therapy. He is looking forward to getting out of the hospital. Endorses: Numbness and paralysis of the wrist fingers and some in the elbow, swelling in the back of the upper arm Denies: Fever, chills, nausea, vomiting, shortness of breath, chest pain, headache, abdominal pain, calf pain (Diaz Casillas MD R2) Objective Vitals Vital Signs Date Time Temp Pulse Resp B/P Pulse Ox O2 Delivery O2 Flow Rate FiO2 09/13/16 08:00 95.6 71 16 138/93 94 09/13/16 00:00 97.1 66 17 127/62 97 09/12/16 20:00 96.8 66 17 135/66 96 09/12/16 12:07 95 Nasal Cannula 2.00 I/O 09/12/16 09/12/16 09/12/16 09/13/16 09/13/16 09/13/16 07:00 15:00 23:00 07:00 15:00 23:00 Intake Total 340 ml 480 ml 240 ml 240 ml Output Total 180 ml 270 ml 80 ml 300 ml Balance 160 ml 210 ml 160 ml -60 ml Intake Oral 240 ml 480 ml 240 ml 240 ml IV Total 100 ml 0 ml Output Urine Total 150 ml 250 ml 250 ml Drainage Total 30 ml 20 ml 80 ml 50 ml # Voids 2 3 # Bowel Movements 0 (Diaz Casillas MD R2) Result Diagram: 09/13/16 0435 09/13/16 0435 Imaging Last Impressions Upper Extremity Ultrasound 09/10/16 0000 Signed Impressions: Service Date/Time: Saturday, September 10, 2016 14:37 - CONCLUSION: 1. No DVT. 2. However, complex, 1.7 x 5.4 x 9.0 cm left axillary collection may represent hematoma/seroma from prior trauma. This could be compressing on regional venous structures in contributing to the patient's current clinical symptoms. Marquis Tariq MD ADDENDUM: Please note, in conclusion #2 above, this should refer to the right axilla, not the left. Marquis Tariq MD Upper Extremity MRI 09/10/16 0000 Signed Impressions: Service Date/Time: Saturday, September 10, 2016 18:07 - CONCLUSION: 1. Large left axillary hematoma extending up to 16.4 x 7.5 x 9.1 cm in dimension and extending inferiorly along the medial aspect of the humerus. There is displacement and extrinsic impression on the axillary and brachial venous structures and posterior displacement of the arteries. No acute bony abnormality. Yeison Davila MD ADDENDUM: Please note, this study was of the right axilla and upper extremity. As such, in conclusion #1, the hematoma involves the right axilla. Marquis Tariq MD Chest X-Ray 09/10/16 0000 Signed Impressions: Service Date/Time: Saturday, September 10, 2016 20:47 - CONCLUSION: 1. Mild basilar airspace disease which may represent atelectasis with small effusions. Yeison Davila MD Objective Remarks O. CONSTITUTIONAL/GEN: normally nourished with elevated BMI, in NAD. LUNGS: clear A-P, respiratory effort is normal. CARDIOVASCULAR: RRR without murmur or gallop. 1+ edema of LLE with stasis related skin changes, trace edema of RLE. No calf tenderness. GI/ABD: soft without masses, without organomegaly. NEURO: deficit of motor function of entire right arm from elbow down. No sensation from elbow down. HEME/LYMPH: no bruising, petechia or significant adenopathy MUSC: back is normal in appearance. Palpable mass over medial upper arm in area of hematoma noted on MRI. POLINA drain in place with sanguinous fluid PSYCH/MENTAL STATUS: Alert and oriented x 3. Procedures 09/12/16: Aspiration of hematoma Medications and IVs Current Medications Medications (Trade) Dose Ordered Sig/Gabriella Route Start Time Stop Time Status Last Admin (Zyloprim) 300 mg DAILY PO 09/11/16 09:00 09/13/16 07:47 (Symbicort 160-4.5 Inh) 2 puff Q12HR INH 09/10/16 21:00 09/13/16 07:50 (Aquaphor Oint) 1 applic TID PRN TOP 09/10/16 17:00 (Ferrous Sulfate) 325 mg BID PO 09/10/16 21:00 09/13/16 07:47 (PROzac) 60 mg DAILY PO 09/11/16 09:00 09/13/16 07:48 (Folate) 1 mg DAILY PO 09/11/16 09:00 09/13/16 07:47 (Neurontin) 600 mg TID PO 09/10/16 18:00 09/13/16 07:47 (Synthroid) 125 mcg DAILY@06 PO 09/11/16 06:00 09/13/16 05:19 (Lopressor) 25 mg DAILY PO 09/11/16 09:00 09/13/16 07:47 (Oramorph Sr) 15 mg BID PO 09/10/16 21:00 09/13/16 07:47 (Protonix) 40 mg DAILY PO 09/11/16 09:00 09/13/16 07:47 (KCl) 20 meq DAILY PO 09/11/16 09:00 09/13/16 07:47 (Minipress) 1 mg HS PRN PO 09/10/16 17:00 Patient Own Medication PT OWN MED: Apremil... BID PO 09/10/16 21:00 Hold (NS Flush) 2 ml UNSCH PRN FLUSH 09/10/16 16:15 (NS Flush) 2 ml BID FLUSH 09/10/16 21:00 09/13/16 08:01 (Tylenol) 650 mg Q4H PRN PO 09/10/16 17:00 (Zofran Inj) 4 mg Q6H PRN IVP 09/10/16 17:00 (Narcan Inj) 0.4 mg UNSCH PRN IV 09/10/16 16:15 (Lilian-Colace) 1 tab BID PRN PO 09/10/16 17:00 (Catapres) 0.1 mg Q6H PRN PO 09/10/16 17:00 (Percocet 10-325 Mg) 1 tab Q6H PRN PO 09/10/16 16:45 09/13/16 05:19 (Dilaudid Pf Inj) 1 mg Q4H PRN IV PUSH 09/10/16 16:45 (Spiriva Inh) 18 mcg DAILY INH 09/11/16 09:00 09/13/16 07:50 (Proair Hfa Inh) 1 puff QID INH 09/10/16 18:00 09/13/16 07:50 (Diaz Casillas MD R2) A/P Assessment and Plan 71-year-old male with a complicated past medical history who presents with complete right lower arm palsy 3 weeks. S/p drain placement of hematoma. Discharge Planning Possible discharge plan for today. Will need OT on discharge. (Diaz Casillas MD R2) Attending Attestation Case reviewed and discussed with the resident team. Agree with plan of care as discussed with me and documented in the resident note. (Charlie Soliz MD) Problem List: (1) Nerve palsy Status: Acute Plan: Patient appears to have complete paralysis of his RLE from the elbow down with involvement of the radial, median, and ulnar nerves. Recent MRI w/o contrast reportedly revealed a large hematoma in the right arm with possible nerve compression. POD#2 from aspiration and drain placement - Consulted vascular surgery, Dr. Deng, appreciate rec's - On Clindamycin 600mg q8H IV - Consulted neurology, appreciate recs, would like to f/u in a couple weeks - Continue FORESTRY FACULTY MEMBER morphine ER 15mg BID - Percocet 10/325 q6hrs prn pain 4-10 - Dilaudid 1mg prn breakthrough pain - Consult PT/OT - Consult case management as patient will likely require inpatient rehab following intervention (2) COPD (chronic obstructive pulmonary disease) Status: Chronic Plan: Patient reports having some increase in shortness of breath and wheezing requesting breathing treatment this time. - Continue FORESTRY FACULTY MEMBER Symbicort 2 puffs twice a day - Continue FORESTRY FACULTY MEMBER Combivent 1 puff 4 times a day -Duonebs when necessary shortness of breath wheezing (3) Atrial fibrillation Status: Chronic Plan: Currently rate controlled - Holding home Coumadin due to hematoma - Continue FORESTRY FACULTY MEMBER Lopressor 25 mg daily (4) Gout Status: Chronic Plan: No evidence of flare. - Continue FORESTRY FACULTY MEMBER allopurinol 300 mg daily (5) Depression Status: Chronic Plan: Mood is currently stable without suicidal ideation - Continue FORESTRY FACULTY MEMBER Prozac 60 mg daily (6) Hypothyroidism Status: Chronic Plan: Currently stable - Continue FORESTRY FACULTY MEMBER levothyroxine 125 g daily (7) Psoriasis Status: Chronic Plan: No evidence of flare - Continue FORESTRY FACULTY MEMBER Otezla 30mg BID (8) GERD (gastroesophageal reflux disease) Status: Chronic Plan: Continue FORESTRY FACULTY MEMBER omeprazole 40 mg daily (9) BPH (benign prostatic hyperplasia) Status: Chronic Plan: Continue FORESTRY FACULTY MEMBER prazosin 1 mg daily (10) FEN/PPX Status: Chronic Plan: FEN: - none, tolerating PO - Monitor replace electrolytes as needed - regular diet PPX: - Bilateral lower extremity SCDs - Zofran prn for nausea - Tylenol prn for fever (Diaz Casillas MD R2) Problem Qualifiers (1) COPD (chronic obstructive pulmonary disease): Qualified Code: J44.9 - Chronic obstructive pulmonary disease, unspecified COPD type (2) Atrial fibrillation: Qualified Code: I48.2 - Chronic atrial fibrillation (3) Gout: Qualified Code: M10.9 - Gout, unspecified cause, unspecified chronicity, unspecified site Diaz Casillas MD R2 Sep 13, 2016 09:13 Charlie Soliz MD Sep 13, 2016 10:12
--- NOTE | 2016-09-13 10:44 | HHI.FF ---
Face to Face Verification Diagnosis: (1) Nerve palsy Occupational Therapy Order: Evaluate and Treat, Improve ADL, Gross motor coordination, Fine motor coordination I have seen patient Cirilo Monreal Jr Mike on 09/13/16. My clinical findings support the need for the requested home health care services because: Ltd mobility - disease progression I certify that my clinical findings support that this patient is homebound because: Impaired cognitive ability/safety Jorge Coleman MD R1 Sep 13, 2016 10:44
--- NOTE | 2016-09-13 10:44 | HHI.DCPOC ---
Discharge Care Plan Diagnosis: (1) COPD (chronic obstructive pulmonary disease) (2) Atrial fibrillation (3) Depression (4) Hypothyroidism (5) Psoriasis (6) GERD (gastroesophageal reflux disease) (7) BPH (benign prostatic hyperplasia) (8) Nerve palsy Goals to Promote Your Health * To prevent worsening of your condition and complications * To maintain your health at the optimal level Directions to Meet Your Goals Take your medications as prescribed Follow your dietary instruction Follow activity as directed Keep your appointments as scheduled Take your immunizations and boosters as scheduled If your symptoms worsen call your PCP, if no PCP go to Urgent Care Center or Emergency Room Smoking is Dangerous to Your Health. Avoid second hand smoke Call the 24-hour hour crisis hotline for domestic abuse at Jorge Coleman MD R1 Sep 13, 2016 10:44
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
--- NOTE | 2016-09-13 11:10 | PD.CAR.PN ---
CVT Progress Note Subjective/Hospital Course: Patient doing very well today Underwent yesterday drainage of a large hematoma of the axilla and right upper arm with about 400 cc of liquefied blood in it This is now decompressed and arm is soft POLINA drainage is down to 50 cc per 24 hours Patient feels much better and swelling is significantly decreased Patient still has palate see off median and radial nerves as well as part of the ulnar nerve distribution I will DC the POLINA tomorrow and patient will be discharged with instructions for follow-up and OT therapy 09/13/16 Hematoma of the axilla and right upper arm is completely drained DC POLINA today May wash with soap and water daily Dressed dry daily Maybe see patient today from my point with follow-up in about 2 weeks in my office Objective: Vital Signs Date Time Temp Pulse Resp B/P Pulse Ox O2 Delivery O2 Flow Rate FiO2 09/13/16 08:55 98 09/13/16 08:00 95.6 71 16 138/93 94 09/13/16 00:00 97.1 66 17 127/62 97 09/12/16 20:00 96.8 66 17 135/66 96 09/12/16 12:07 95 Nasal Cannula 2.00 Labs: Laboratory Tests Test 09/13/16 04:35 White Blood Count 5.5 TH/MM3 (4.0-11.0) Red Blood Count 3.30 MIL/MM3 (4.50-5.90) Hemoglobin 9.8 GM/DL (13.0-17.0) Hematocrit 30.0 % (39.0-51.0) Mean Corpuscular Volume 90.9 FL (80.0-100.0) Mean Corpuscular Hemoglobin 29.6 PG (27.0-34.0) Mean Corpuscular Hemoglobin 32.6 % Concent (32.0-36.0) Red Cell Distribution Width 15.9 % (11.6-17.2) Platelet Count 134 TH/MM3 (150-450) Mean Platelet Volume 9.7 FL (7.0-11.0) Neutrophils (%) (Auto) 68.0 % (16.0-70.0) Lymphocytes (%) (Auto) 18.0 % (9.0-44.0) Monocytes (%) (Auto) 10.9 % (0.0-8.0) Eosinophils (%) (Auto) 2.2 % (0.0-4.0) Basophils (%) (Auto) 0.9 % (0.0-2.0) Neutrophils # (Auto) 3.8 TH/MM3 (1.8-7.7) Lymphocytes # (Auto) 1.0 TH/MM3 (1.0-4.8) Monocytes # (Auto) 0.6 TH/MM3 (0-0.9) Eosinophils # (Auto) 0.1 TH/MM3 (0-0.4) Basophils # (Auto) 0.0 TH/MM3 (0-0.2) CBC Comment DIFF FINAL Differential Comment Sodium Level 140 MEQ/L (136-145) Potassium Level 4.1 MEQ/L (3.5-5.1) Chloride Level 106 MEQ/L (98-107) Carbon Dioxide Level 26.8 MEQ/L (21.0-32.0) Anion Gap 7 MEQ/L (5-15) Blood Urea Nitrogen 19 MG/DL (7-18) Creatinine 1.02 MG/DL (0.60-1.30) Estimat Glomerular Filtration 72 ML/MIN (>89) Rate Random Glucose 89 MG/DL (74-106) Calcium Level 8.4 MG/DL (8.5-10.1) Result Diagram: 09/13/16 0435 09/13/16 0435 Slava Deng MD Sep 13, 2016 11:10
[2016-09-13 12:00] VITALS: BP 122/64; PULSE 68; RESP 16; TEMP 96.3; O2SAT 96
[2016-09-13] MEDS ORDERED: RESP: ALBUTEROL 2.5 MG/IPRATROPIUM 0.5 MG NEB (PRN) NEB (12:00)
[2016-09-13] MEDS ORDERED: OXYC-395 PO (14:38)
[2016-09-13] MEDS ORDERED: MORP1TAB24 PO (14:38)
[2016-09-13 16:16] VITALS: BP 119/66; PULSE 69; RESP 18; TEMP 96.2; O2SAT 96
[2016-12-17] MEDS ORDERED: LEVE500 PO (10:30)
[2016-12-17] MEDS ORDERED: OMEP20TA PO (10:30)
[2016-12-17] MEDS ORDERED: FLUO20CA4 PO (10:30)
[2016-12-17] MEDS ORDERED: ALLO300T2 PO (10:30)
[2016-12-17] MEDS ORDERED: NEUR300C PO (10:30)
[2016-12-17] MEDS ORDERED: SYMB160A INH (10:30)
[2016-12-17] MEDS ORDERED: THERTAB15 PO (10:30)
[2016-12-17] MEDS ORDERED: MORP1TAB24 PO (10:30)
[2016-12-17] MEDS ORDERED: LEVO125T4 PO (10:30)
[2016-12-17] MEDS ORDERED: HYDR-3583 PO (10:30)
[2016-12-17] MEDS ORDERED: DOCU1CAP39 PO (10:30)
== END 2016-09-13 17:17 | DRG 74 ==
LOC: NEPC 11:14 → NEDA 15:34 → HOCA 22:36 → N07B 09-11 19:01
PROVIDERS: ADMIT Family Medicine; ATTEND Family Medicine
PROC: 0H9BX0Z Drainage of Right Upper Arm Skin with Drainage Device, External Approach (ICD-10-PCS; principal; 2016-09-11 17:33)
DX: S14.3XXA Injury of brachial plexus, initial encounter (principal); R29.5 Transient paralysis; J44.9 Chronic obstructive pulmonary disease, unspecified; I48.91 Unspecified atrial fibrillation; G54.0 Brachial plexus disorders; I10 Essential (primary) hypertension; F32.9 Major depressive disorder, single episode, unspecified; M10.9 Gout, unspecified; E03.9 Hypothyroidism, unspecified; G47.33 Obstructive sleep apnea (adult) (pediatric); L40.9 Psoriasis, unspecified; N40.0 Benign prostatic hyperplasia without lower urinary tract symptoms; K21.9 Gastro-esophageal reflux disease without esophagitis; Z79.01 Long term (current) use of anticoagulants; Z87.891 Personal history of nicotine dependence; Z98.1 Arthrodesis status; W18.09XA Striking against other object with subsequent fall, initial encounter; G89.29 Other chronic pain; M54.2 Cervicalgia; R11.0 Nausea
CPT/HCPCS: 71020; 73220; 80048; 85025; 85610; 85730; 87015; 87070; 87102; 87116; 87205; 87206; 93005; 93971; 94664; A9579; J0690; J1100; J2250; J2270; J2405; J2765; J3010; J7120

== ENCOUNTER 2016-11-30 18:48 | Inpatient (IN) | payer MEDICARE, OTHER ==
[~2016-11-30] VITALS: Ht 188 cm; Wt 104.7 kg
[~2016-11-30 18:48] MED LIST: ALLO300T2 PO; APRE1TAB3 PO; AQUAOIN2 TOP; FERR325T PO; FOLI1TAB4 PO; GABA600T PO; IPRAAER INH; LEVO125T4 PO; METO-309 PO; MINO100 PO; MORP1TAB24 PO; OMEP20TA PO; OXYC-395 PO; POTA-163 PO; PRAZ1 PO; PROZ20CA11 PO; SYMB160A INH
[2016-11-30 19:00] VITALS: BP 122/74; PULSE 73; RESP 16; TEMP 98.3; O2SAT 95
--- NOTE | 2016-11-30 19:44 | PD ---
HPI Chief Complaint: Head Injury Time Seen by Provider: 19:19 Travel History International Travel<30 days: No Contact w/Intl Traveler<30days: No Traveled to known affect area: No History of Present Illness HPI 71-year-old male presents to the emergency department by EMS transport from [facility] accepted in transfer of care by the neurosurgeon for identified minimal hemorrhage in the anterior hemispheric fissure by CT brain noncontrast. According the patient who relays his own history this afternoon while walking in the parking lot he tripped over a parking concrete block falling forwards hitting his face and head. Patient states he did not have loss of consciousness. Patient states due to previous injuries to both upper extremities he does not have the ability to recheck quickly to catch his fall. Patient states that he did not experience any associated neck pain no back pain chest pain abdominal pain or new extremity pain other than his left shoulder and left knee both of which were x-rayed at the previous facility identified show no acute bony abnormalities. Patient also had CT imaging of the cervical spine without contrast revealed no acute abnormality but was remarkable for chronic changes including no fracture no subluxation postop changes from C3 to T1 and a subtle joint arthropathy with mild canal stenosis at C2 [address] of maxillofacial bones which identified no acute fracture there was moderate soft tissue swelling of the left frontal scalp left zygoma and superior lateral aspect of the left orbit no fracture evidence of previous fractures to the right cheek not associated with this injury. Patient had laceration to the forehead repaired at the previous facility. Patient has extensive past medical history which includes atrial fibrillation but states that he is not on any anticoagulation medications at this time. Patient was not experiencing any symptoms of headache visual disturbance dizziness and near syncope syncope chest pain palpitations sweats shortness of breath nausea vomiting or upper or lower extremity numbness tingling or weakness prior to the fall. PFSH Past Medical History Narrative Medical Appendectomy atrial fibrillation COPD gouty arthritis hypertension neurogenic bladder neurogenic bowel psoriasis renal insufficiency CVA thyroid disease tonsillectomy no tobacco use Hx Anticoagulant Therapy: Yes (came off of coumadin 10 days ago) Heart Rhythm Problems: Yes (AFIB) Cardiovascular Problems: Yes (htn) COPD: Yes Gout: Yes Genitourinary: No Hypertension: Yes Immune Disorder: No Musculoskeletal: Yes (SPINAL CORD INJURY) Psychiatric: No Reproductive: No Respiratory: Yes (copd) Immunizations Current: Yes Thyroid Disease: Yes Tetanus Vaccination: Unknown Influenza Vaccination: Yes Past Surgical History Appendectomy: Yes Eye Surgery: Yes (RT EYE REMOVED) Tonsillectomy: Yes Other Surgery: Yes (BENIGN GROWTH REMOVED FROM NECK) Social History Alcohol Use: No Tobacco Use: No Substance Use: No Allergies-Medications (Allergen,Severity, Reaction): Coded Allergies: No Known Allergies (Unverified , 11/30/16) Reported Meds & Prescriptions Reported Meds & Active Scripts Active Oxycodone (Oxycodone HCl) 10 Mg Tab 10 Mg PO BID Morphine ER (Morphine Sulfate) 15 Mg Tab 15 Mg PO BID Reported Aquaphor (Emollient) 1 Oin Oin 1 Applic TOP TID PRN Omeprazole 20 Mg Tab 40 Mg PO DAILY Lopressor (Metoprolol Tartrate) 50 Mg Tab 25 Mg PO DAILY Levothyroxine (Levothyroxine Sodium) 125 Mcg Tab 125 Mcg PO DAILY Folate (Folic Acid) 1 Mg Tab 1 Mg PO DAILY Allopurinol 300 Mg Tab 300 Mg PO DAILY Minocycline (Minocycline HCl) 100 Mg Cap 100 Mg PO BID Minipress (Prazosin HCl) 1 Mg Cap 1 Mg PO HS PRN *Hold if Blood Pressure less than 90/60Do not take with narcotic medications to avoid hypotension* Prozac (Fluoxetine HCl) 20 Mg Cap 60 Mg PO DAILY Potassium Chloride ER (Potassium Chloride) 20 Meq Tab 20 Meq PO DAILY Ferrous Sulfate 325 Mg Tab 325 Mg PO BID Gabapentin 600 Mg Tab 600 Mg PO TID Symbicort Inh (Budesonide/Formoterol Fumarate) 160-4.5 Mcg/Act Aero 2 Puff INH Q12HR Combivent Respimat Inh (Ipratropium-Albuterol Inh) 20-100 Half-Way/Act Aero 1 Puff INH QID Otezla (Apremilast) 30 Mg Tab 30 Mg PO BID Review of Systems Except as stated in HPI: all other systems reviewed are Neg Physical Exam Narrative GENERAL: Well-developed pleasant male in no acute distress no respiratory distress; GCS 15 SKIN: Warm and dry. HEAD: Atraumatic. Normocephalic except for left forehead with sutured laceration and soft tissue swelling as well as abrasion over the left zygoma. EYES: Pupils equal and round. Extraocular muscles intact. No scleral icterus. No injection or drainage. ENT: No nasal bleeding or discharge. Mucous membranes pink and moist. No hemotympanum bilaterally. NECK: Trachea midline. No JVD. Nontender to direct palpation no bony step-off. CARDIOVASCULAR: Regular rate and rhythm. RESPIRATORY: No accessory muscle use. Clear to auscultation. Breath sounds equal bilaterally. GASTROINTESTINAL: Abdomen soft, non-tender, nondistended. Hepatic and splenic margins not palpable. MUSCULOSKELETAL: Extremities without clubbing, cyanosis, or edema. No obvious deformities. NEUROLOGICAL: Awake and alert. No obvious cranial nerve deficits. Motor grossly within normal limits. Five out of 5 muscle strength in the arms and legs. Normal speech. PSYCHIATRIC: Appropriate mood and affect; insight and judgment normal. Data Data Last Documented VS Vital Signs Date Time Temp Pulse Resp B/P Pulse Ox O2 Delivery O2 Flow Rate FiO2 11/30/16 19:03 16 11/30/16 19:00 98.3 73 122/74 95 Orders Electrocardiogram (11/30/16 19:45) Complete Blood Count With Diff (11/30/16 19:45) Prothrombin Time / Inr (Pt) (11/30/16 19:45) Act Partial Throm Time (Ptt) (11/30/16 19:45) Ua Includes Microscopic (11/30/16 19:45) Type And Screen (11/30/16 19:45) Chest, Single Ap (11/30/16 19:45) Iv Access Insert/Monitor (11/30/16 19:45) Oximetry (11/30/16 19:45) Ecg Monitoring (11/30/16 19:45) Sodium Chloride 0.9% Flush (Ns Flush) (11/30/16 19:45) Basic Metabolic Panel (Bmp) (11/30/16 19:45) Admit Order (Ed Use Only) (11/30/16 ) ^ Saline Lock (11/30/16 20:07) Resp Oxygen Quintin C Titrat 1-4 L (11/30/16 ) Notify Dr: Other (11/30/16 20:07) Sodium Chloride 0.9% Flush (Ns Flush) (11/30/16 21:00) Sodium Chloride 0.9% Flush (Ns Flush) (11/30/16 20:15) Consult Neurosurgery (11/30/16 20:07) MDM Medical Decision Making Medical Screen Exam Complete: Yes Emergency Medical Condition: Yes Medical Record Reviewed: Yes Differential Diagnosis Intracranial bleed status post fall @ [facility] the following studies were performed with the following radiologist readings: CT brain without was perform CT cervical spine without contrast was performed CT max of facial bones without contrast was performed x-ray left shoulder was performed left knee x-ray was performed ---- reports per [facility] radiologist x-ray shoulder no acute finding no evidence of fracture or dislocation x-ray knee no acute displaced fracture CT brain noncontrast reading minimal hemorrhage in the anterior hemispheric fissure no mass effect or midline shift chronic small vessel disease and soft tissue swelling overlying the left zygoma and left frontal scalp region CT cervical spine without contrast per reading radiologist stable CT cervical spine no acute abnormality no fracture or subluxation postoperative changes noted from C3 to T1 facet joint arthropathy 3 with mild canal stenosis at C2 3; CT maxillofacial without contrast no fracture moderate soft tissue swelling left frontal scalp region overlying left zygoma answered. Last fact of the left orbit left lobe and retro-orbital fat appeared normal no fracture subcutaneous hyperdense bone fragments in the right cheek overlying right zygoma and maxilla Narrative Course @ [facility] the following studies were performed with the following radiologist readings: CT brain without was perform CT cervical spine without contrast was performed CT max of facial bones without contrast was performed x-ray left shoulder was performed left knee x-ray was performed ---- reports per [facility] radiologist x-ray shoulder no acute finding no evidence of fracture or dislocation x-ray knee no acute displaced fracture CT brain noncontrast reading minimal hemorrhage in the anterior hemispheric fissure no mass effect or midline shift chronic small vessel disease and soft tissue swelling overlying the left zygoma and left frontal scalp region CT cervical spine without contrast per reading radiologist stable CT cervical spine no acute abnormality no fracture or subluxation postoperative changes noted from C3 to T1 facet joint arthropathy 3 with mild canal stenosis at C2 3; CT maxillofacial without contrast no fracture moderate soft tissue swelling left frontal scalp region overlying left zygoma answered. Last fact of the left orbit left lobe and retro-orbital fat appeared normal no fracture subcutaneous hyperdense bone fragments in the right cheek overlying right zygoma and maxilla Physician Communication Physician Communication discussed with NS Dr Turk admit to intensivists w/ NS consult Diagnosis Primary Impression: ICH (intracerebral hemorrhage) Qualified Code: S06.360A - Traumatic hemorrhage of cerebrum without loss of consciousness, unspecified laterality, initial encounter Admitting Information Admitting Physician Requests: Admit Edith Wells MD Nov 30, 2016 19:44
[2016-11-30] MEDS ORDERED: SODIUM CHLORIDE 0.9% FLUSH 10 ML FLUSH IVF PRN ×2 (19:45→20:15)
--- NOTE | 2016-11-30 20:21 | RADRPT ---
EXAM DATE/TIME: 11/30/2016 19:54 [facility] COMPARISON: CHEST PA & LAT, September 10, 2016, 20:47. INDICATIONS : Fall. Weakness. MEDICAL HISTORY : None. SURGICAL HISTORY : None. ENCOUNTER: Initial ACUITY: 1 day PAIN SCORE: 7/10 LOCATION: Bilateral chest FINDINGS: The lungs are clear without infiltrate, nodule, or mass. There is no appreciable pleural effusion fo r technique. Heart and mediastinum are unremarkable. There are atherosclerotic calcifications of the aorta due to chronic atherosclerotic disease. CONCLUSION: No acute cardiopulmonary disease. Mohit Hunt MD on November 30, 2016 at 20:19 Board Certified Radiologist. This report was verified electronically.
[2016-11-30 20:23] LABS: AUTOMATED NEUTROPHIL # 10.2 TH/MM3 (1.8-7.7); BASOPHIL # 0.1 TH/MM3 (0-0.2); BASOPHIL % 0.6 % (0.0-2.0); EOSINOPHIL # 0.1 TH/MM3 (0-0.4); HEMATOCRIT 39.2 % (39.0-51.0); HEMO FLAGS DIFF FINAL; LYMPH % 10.2 % (9.0-44.0); LYMPHOCYTE # 1.3 TH/MM3 (1.0-4.8); MEAN CELL VOLUME 83.2 FL (80.0-100.0); MEAN CORPUSCULAR HEMOGLOBIN 27.7 PG (27.0-34.0); MEAN CORPUSCULAR HGB CONC 33.3 % (32.0-36.0); MONO % 6.3 % (0.0-8.0); NEUT % 81.9 % (16.0-70.0); PLATELET COUNT 276 TH/MM3 (150-450); RED BLOOD COUNT 4.71 MIL/MM3 (4.50-5.90); RED CELL DISTRIBUTION WIDTH 15.3 % (11.6-17.2); WHITE BLOOD COUNT 12.4 TH/MM3 (4.0-11.0)
[2016-11-30 20:38] LABS: APTT (PATIENT) 29.2 SEC (24.3-30.1); PROTHROMBIN TIME - PATIENT 11.1 SEC (9.8-11.6)
[2016-11-30 20:43] LABS: BICARBONATE 31.5 MEQ/L (21.0-32.0); POTASSIUM 4.4 MEQ/L (3.5-5.1)
[2016-11-30] MEDS: SODIUM CHLORIDE 0.9% FLUSH 10 ML FLUSH IV FLUSH SCH (20:50)
[2016-11-30 20:51] VITALS: RESP 16
--- NOTE | 2016-11-30 20:54 | PD.CONS ---
REASON FOR CONSULTATION: Interhemispheric subdural hematoma HISTORY OF PRESENT ILLNESS: 71-year-old male transferred from [facility] due to small acute interhemispheric hemorrhage. Patient tripped over a parking concrete block falling forwards hitting his face and head. No loss of consciousness. Patient complains of left shoulder pain. He has history of an extensive posterior cervical fusion from C3 to T1 and he underwent a CT of the cervical spine at the referring institution that showed multilevel spondylotic changes but no acute fractures. The hardware is in adequate position. Patient has weakness in the upper extremities, worse on the right side and unchanged after the recent fall. PAST MEDICAL HISTORY: atrial fibrillation, COPD, gouty arthritis, hypertension, neurogenic bladder, neurogenic bowel, psoriasis, renal insufficiency CVA thyroid disease tonsillectomy PAST SURGICAL HISTORY: History of posterior cervical fusion, appendectomy PAST SOCIAL HISTORY: no smoking, occasional ETOH intake FAMILY HISTORY: no intracranial or spinal conditions ALLERGIES: NKDA MEDICATIONS: Aquaphor (Emollient) 1 Oin Oin 1 Applic TOP TID PRN Omeprazole 20 Mg Tab 40 Mg PO DAILY Lopressor (Metoprolol Tartrate) 50 Mg Tab 25 Mg PO DAILY Levothyroxine (Levothyroxine Sodium) 125 Mcg Tab 125 Mcg PO DAILY Folate (Folic Acid) 1 Mg Tab 1 Mg PO DAILY Allopurinol 300 Mg Tab 300 Mg PO DAILY Minocycline (Minocycline HCl) 100 Mg Cap 100 Mg PO BID Minipress (Prazosin HCl) 1 Mg Cap 1 Mg PO HS PRN *Hold if Blood Pressure less than 90/60Do not take with narcotic medications to avoid hypotension* Prozac (Fluoxetine HCl) 20 Mg Cap 60 Mg PO DAILY Potassium Chloride ER (Potassium Chloride) 20 Meq Tab 20 Meq PO DAILY Ferrous Sulfate 325 Mg Tab 325 Mg PO BID Gabapentin 600 Mg Tab 600 Mg PO TID Symbicort Inh (Budesonide/Formoterol Fumarate) 160-4.5 Mcg/Act Aero 2 Puff INH Q12HR Combivent Respimat Inh (Ipratropium-Albuterol Inh) 20-100 Halfway/Act Aero 1 Puff INH QID Otezla (Apremilast) 30 Mg Tab 30 Mg PO BID REVIEW OF SYSTEMS: Constitutional: no fever or fatigue. In general good health. Eyes: no infection, blurred or double vision. Cardiovascular: no chest pain or palpitations. Gastrointestinal: no nausea, vomiting or diarrhea. Genitourinary: no incontinence or painful urination. Neurological: look at HPI Hematologic: no anemia or easy bruising Musculoskeletal: look at HPI Endocrine: no unexplained changes in weight Integumentary: not known skin lesions PHYSICAL EXAMINATION: VITALS SIGNS: Vital Signs Date Time Temp Pulse Resp B/P Pulse Ox O2 Delivery O2 Flow Rate FiO2 11/30/16 20:51 16 11/30/16 19:00 98.3 73 122/74 95 HEENT: Left frontal laceration SKIN: devoid of any neurocutaneous disorders. CV: heart is in regular rate and rhythm without murmur. ABD: benign, soft, flat, and without hepatosplenomegaly or tenderness. EXTREM: warm NEUROLOGICAL EXAMINATION: MENTAL STATUS: The patient is awake, alert and fully oriented with normal speech and language. CRANIAL NERVES: Left pupil reactive 3 mm. Right eye prosthesis. Visual addison are full on the left. No vertical or horizontal nyastagmus is noted. Face symmetric, tongue midline. Shoulder shrug and sternocleidomastiod strength symmetric and strong. MOTOR: Strength in the right upper extremity is deltoid 4/5, biceps and triceps 3/5 and dorsiflexion and hand intrinsics 2/5. Left upper extremity range of motion is limited due to pain around the shoulder. Deltoid is 4/5, rest of major muscle groups in the left upper extremity are unremarkable SENSORY: unremarkable to light touch and pinprick throughout. REFLEXES: 2+ and symmetric bilaterally. No hyperreflexia or pathological reflexes noted. GAIT: not tested RELEVANT LABORATORY DATA: CBC & BMP Diagram 11/30/16 20:10 Laboratory Tests Test 11/30/16 20:10 Prothrombin Time 11.1 SEC (9.8-11.6) Prothromb Time International 1.0 RATIO Ratio ASSESSMENT: Small interhemispheric hemorrhage status post fall. Neurologically as baseline RECOMMENDATIONS: Admitted to the ICU for neuro checks Repeat head CT in 24 hours Continue Keppra for seizure prophylaxis Thank you for allowing me to participate in the care of your patient. If I can be of future assistance or should you have any questions about this or any other patient, please do not hesitate to contact me. Juan Vizcarra M.D. [facility] Neurosurgeon Juan Castanon MD Nov 30, 2016 20:53
[2016-11-30] MEDS ORDERED: ONDANSETRON HCL 4 MG/2 ML VIAL IV PUSH ONE (21:30)
[2016-11-30] MEDS ORDERED: MORPHINE SULFATE 4 MG/ML INJ IV PUSH ONE (21:30)
[2016-11-30 21:42] LABS: BLOOD, URINE NEG (NEG); GLUCOSE,URINE NEG (NEG); KETONE, URINE NEG (NEG); MUCUS URINE FEW /lpf (OCC); NITRITE,URINE NEG (NEG); PH, URINE 6.5 (5.0-8.5); SQUAMOUS EPITHELIAL CELL URINE <1 /hpf (0-5); URINE COLOR YELLOW (YELLW/STRAW)
[2016-11-30 22:22] VITALS: BP 115/65; PULSE 73; RESP 18; O2SAT 97
--- NOTE | 2016-11-30 22:31 | HHI.HP ---
[facility] Service Critical Care Medicine Primary Care Physician Birgit [facility] Admission Diagnosis intracranial bleed s/p fall Diagnosis: Chief Complaint: Fell on parking lot block, hit head. Travel History International Travel<30 Days: No Contact w/Intl Traveler <30 Da: No Traveled to Known Affected Are: No History of Present Illness 71 y/o man with chronic a-fib tripped over parking lot block, fell and hit his head and shoulder in [place]. CT Head with moderate amount intrahemispheric blood between frontal lobes. No shift or compression. Stopped taking his coumadin over one week ago. No LOC, syncope. CT head with blood in the Transferred to [facility] for further evaluation. Neck and shoulder xrays no acute injury. Numerous old cervical spine problems, hardware unmoved, nothing acute on neck CT scan. INR 1.0. He specifically stopped taking his coumadin because he was afraid of bleeding from a fall. He has chronic upper extremity weakness due to prior injuries, nothing new. Past Family Social History Allergies: Coded Allergies: No Known Allergies (Unverified , 11/30/16) Past Medical History Past Medical History Narrative Medical Appendectomy atrial fibrillation COPD gouty arthritis hypertension neurogenic bladder neurogenic bowel psoriasis renal insufficiency CVA thyroid disease tonsillectomy no tobacco use Hx Anticoagulant Therapy: Yes (came off of coumadin 10 days ago) Heart Rhythm Problems: Yes (AFIB) Cardiovascular Problems: Yes (htn) COPD: Yes Gout: Yes Genitourinary: No Hypertension: Yes Immune Disorder: No Musculoskeletal: Yes (SPINAL CORD INJURY) Psychiatric: No Reproductive: No Respiratory: Yes (copd) Immunizations Current: Yes Thyroid Disease: Yes Tetanus Vaccination: Unknown Influenza Vaccination: Yes Past Surgical History Appendectomy: Yes Eye Surgery: Yes (RT EYE REMOVED) Tonsillectomy: Yes Other Surgery: Yes (BENIGN GROWTH REMOVED FROM NECK) Social History Alcohol Use: No Tobacco Use: No Substance Use: No Allergies-Medications Allergies-Medications (Allergen,Severity, Reaction): Coded Allergies: No Known Allergies (Unverified , 11/30/16) Reported Meds & Prescriptions Reported Meds & Active Scripts Active Oxycodone (Oxycodone HCl) 10 Mg Tab 10 Mg PO BID Morphine ER (Morphine Sulfate) 15 Mg Tab 15 Mg PO BID Reported Aquaphor (Emollient) 1 Oin Oin 1 Applic TOP TID PRN Omeprazole 20 Mg Tab 40 Mg PO DAILY Lopressor (Metoprolol Tartrate) 50 Mg Tab 25 Mg PO DAILY Levothyroxine (Levothyroxine Sodium) 125 Mcg Tab 125 Mcg PO DAILY Folate (Folic Acid) 1 Mg Tab 1 Mg PO DAILY Allopurinol 300 Mg Tab 300 Mg PO DAILY Minocycline (Minocycline HCl) 100 Mg Cap 100 Mg PO BID Minipress (Prazosin HCl) 1 Mg Cap 1 Mg PO HS PRN *Hold if Blood Pressure less than 90/60Do not take with narcotic medications to avoid hypotension* Prozac (Fluoxetine HCl) 20 Mg Cap 60 Mg PO DAILY Potassium Chloride ER (Potassium Chloride) 20 Meq Tab 20 Meq PO DAILY Ferrous Sulfate 325 Mg Tab 325 Mg PO BID Gabapentin 600 Mg Tab 600 Mg PO TID Symbicort Inh (Budesonide/Formoterol Fumarate) 160-4.5 Mcg/Act Aero 2 Puff INH Q12HR Combivent Respimat Inh (Ipratropium-Albuterol Inh) 20-100 Alf/Act Aero 1 Puff INH QID Otezla (Apremilast) 30 Mg Tab 30 Mg PO BID Physical Exam Vital Signs Vital Signs Date Time Temp Pulse Resp B/P Pulse Ox O2 Delivery O2 Flow Rate FiO2 11/30/16 22:22 73 18 115/65 97 Room Air 11/30/16 22:13 16 11/30/16 20:51 16 11/30/16 19:03 16 11/30/16 19:00 98.3 73 16 122/74 95 Physical Exam Gen: Alert, oriented, conversant. Well-tanned. Head: Bruise left forehead. 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 Neck: Chronically stiff. Airway widely patent. Lungs" Clear, no wheezes or crackles. Comfortable pattern. Heart: Irreg Irreg. Soft systolic murmur apex. No JVD. Abdomen: Soft, ND, NT, BS active. Extremities: Warm, well perfused. Minor atrophy right arm. Neuro: O X 3, alert, cooperative. Moves fingers and toes to command. Right arm chronically weak. Left arm movement limited by shoulder pain. EOM left eye intact. Tongue protrusion, shoulder shrug, smile, grimace intact. Laboratory Laboratory Tests Test 11/30/16 11/30/16 20:10 21:00 White Blood Count 12.4 Red Blood Count 4.71 Hemoglobin 13.1 Hematocrit 39.2 Mean Corpuscular Volume 83.2 Mean Corpuscular Hemoglobin 27.7 Mean Corpuscular Hemoglobin 33.3 Concent Red Cell Distribution Width 15.3 Platelet Count 276 Mean Platelet Volume 10.2 Neutrophils (%) (Auto) 81.9 Lymphocytes (%) (Auto) 10.2 Monocytes (%) (Auto) 6.3 Eosinophils (%) (Auto) 1.0 Basophils (%) (Auto) 0.6 Neutrophils # (Auto) 10.2 Lymphocytes # (Auto) 1.3 Monocytes # (Auto) 0.8 Eosinophils # (Auto) 0.1 Basophils # (Auto) 0.1 CBC Comment DIFF FINAL Differential Comment Prothrombin Time 11.1 Prothromb Time International 1.0 Ratio Activated Partial 29.2 Thromboplast Time Sodium Level 137 Potassium Level 4.4 Chloride Level 99 Carbon Dioxide Level 31.5 Anion Gap 7 Blood Urea Nitrogen 12 Creatinine 0.93 Estimat Glomerular Filtration 81 Rate Random Glucose 93 Calcium Level 9.0 Blood Type O NEGATIVE Antibody Screen NEGATIVE Blood Bank Comment Urine Color YELLOW Urine Turbidity CLEAR Urine pH 6.5 Urine Specific [place] 1.019 Urine Protein TRACE Urine Glucose (UA) NEG Urine Ketones NEG Urine Occult Blood NEG Urine Nitrite NEG Urine Bilirubin NEG Urine Urobilinogen LESS THAN 2.0 Urine Leukocyte Esterase TRACE Urine RBC 2 Urine WBC 2 Urine Squamous Epithelial <1 Cells Urine Mucus FEW Microscopic Urinalysis Comment Result Diagram: 11/30/16200911/30/162009 Assessment and Plan Assessment and Plan Assessment: 1. Trip and fall, no syncope. 2. Closed head injury with traumatic subarachnoid bleed. 3. Permanent atrial fibrillation. 4. Hypertension. Plan: 1. Admit [facility]. 2. Neuro checks q2h. 3. Bed rest today. 4. Repeat CT head a.m. 5. Protonix. 6. SCDs. 7. No chemical DVT px. Overall impression: Significant closed head trauma. Will follow in [facility] with neuro checks, repeat Head CT. Atrial fibrillation complicates his care as to embolic prophylaxis. Critical Care 37 mins Kevin Gee MD Nov 30, 2016 22:31
[2016-11-30 22:40] VITALS: O2SAT 95
[2016-12-01] VITALS (13 sets, daily range): BP systolic 104–136; BP diastolic 55–85; PULSE 58–88; RESP 18–27; TEMP 97.9–99.2; O2SAT 91–99
[2016-12-01] MEDS: ACETAMINOPHEN 1000 MG/100 ML VIAL IV SCH ×3 (08:30→20:12)
[2016-12-01] MEDS: SODIUM CHLORIDE 0.9% FLUSH 10 ML FLUSH IV FLUSH SCH ×2 (10:05→20:13)
[2016-12-01] MEDS: MORPHINE SULFATE 15 MG CONTROLLED RELEASE TAB PO SCH ×2 (10:06→20:13)
[2016-12-01] MEDS: levETIRAcetam 500 MG TAB PO SCH ×2 (10:06→20:12)
--- NOTE | 2016-12-01 12:50 | RADRPT ---
EXAM DATE/TIME: 12/01/2016 11:44 [facility] COMPARISON: No previous studies available for comparison. INDICATIONS : Evaluate status of intracerebral hemorrhage. RADIATION DOSE: 53.40 CTDIvol (mGy) MEDICAL HISTORY : Hypertension. SURGICAL HISTORY : Fusion, cervical. right eye removed ENCOUNTER: Initial ACUITY: 1 day PAIN SCALE: 0/10 LOCATION: Bilateral head TECHNIQUE: Multiple contiguous axial images were obtained of the head. Using automated exposure control and adj ustment of the mA and/or kV according to patient size, radiation dose was kept as low as reasonably a chievable to obtain optimal diagnostic quality images. FINDINGS: CEREBRUM: 4 mm thick hyperdensity is seen posteriorly along the falx on the left. The ventricles are normal for age. No evidence of midline shift, mass lesion, acute infarction. No extra-axial fluid collections are seen. POSTERIOR FOSSA: The cerebellum and brainstem are intact. The 4th ventricle is midline. The cerebellopontine angle i s unremarkable. EXTRACRANIAL: The visualized portion of the orbits is intact. SKULL: The calvaria is intact. No evidence of skull fracture. CONCLUSION: 4 mm thick left paramidline parietal extra-axial hemorrhage along the falx. Lalito Horne MD on December 01, 2016 at 12:45 Board Certified Radiologist. This report was verified electronically.
[2016-12-01] MEDS ORDERED: MORPHINE SULFATE 15 MG CONTROLLED RELEASE TAB PO SCH (13:30)
--- NOTE | 2016-12-01 14:00 | HHI.CCPN ---
Subjective Remarks/Hospital Course 71 y/o man with chronic a-fib tripped over parking lot block, fell and hit his head and shoulder in [place]. CT Head with moderate amount intrahemispheric blood between frontal lobes. No shift or compression. Stopped taking his coumadin over one week ago. No LOC, syncope. CT head with blood in the [place] [facility] [place] Neck and shoulder xrays no acute injury. Numerous old cervical spine problems, hardware unmoved, nothing acute on neck CT scan. INR 1.0. He specifically stopped taking his coumadin because he was afraid of bleeding from a fall. He has chronic upper extremity weakness due to prior injuries, nothing new. Subjective: 12/01: Neurological status unchanged. Objective Vital Signs Date Time Temp Pulse Resp B/P Pulse Ox O2 Delivery O2 Flow Rate FiO2 12/01/16 12:05 91 21 12/01/16 12:00 69 12/01/16 12:00 99.0 27 136/62 12/01/16 07:00 Room Air Result Diagram: 11/30/16200911/30/162009 Imaging Last [address] 12/01/16 0000 Signed Impressions: Service Date/Time: Thursday, December 01, 2016 11:44 - CONCLUSION: 4 mm thick left paramidline parietal extra-axial hemorrhage along the falx. Lalito Horne MD Chest X-Ray 11/30/161944 Signed Impressions: Service Date/Time: Wednesday, November 30, 2016 19:54 - CONCLUSION: No acute cardiopulmonary disease. Mohit Hunt MD Objective Remarks BP 121/59 P 88 O2 sat 94% Gen: Alert, oriented, conversant. Well-tanned. Head: Bruise left forehead. 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 Airway widely patent. Lungs" Clear, no wheezes or crackles. Comfortable pattern. Heart: Irreg Irreg. Soft systolic murmur apex. No JVD. Abdomen: Soft, ND, NT, BS active. Extremities: Warm, well perfused. Minor atrophy right arm. Neuro: O X 3, alert, cooperative. Follows commands . Right arm chronically weak. Left arm movement limited by shoulder pain. Procedures Repeat CT this a.m. A/P Assessment and Plan Assessment: 1. Trip and fall, no syncope. 2. Closed head injury with traumatic subarachnoid bleed. 3. Permanent atrial fibrillation. 4. Hypertension. 5. Left shoulder injury Neurologic: Every 2 hours neuro checks per ICU protocol Repeat CT-no advancement of bleed GCS 15 Neurosurgery following- Dr. Fabby Gandhi Resumption of home medications Respiratory: Obtain O2 sat greater than 92%. The patient currently is on 2 L nasal cannula continue to wean Maintain head of bed greater than 30 Cardiovascular: A. fib-rate controlled Hypertension Resume metoprolol (home medication) Renal: BPH Will resume home medication when clinically indicated -- Strict I/Os FEN/GI: Monitor BMP Begin heart healthy diet Zofran for nausea Bowel regimen Heme/ID: Obtain cultures if indicated Monitor CBC Endocrine: Monitor glucose per ICU protocol -- SSI MSK: Left shoulder pain status post fall Obtain limited 2 view shoulder x-ray today follow-up results Prophylaxis: GI Prophylaxis Protonix DVT Prophylaxis -- SCDs No pharmacological DVT prophylaxis Lines: Refer IVs 2 Dispo: Discussed with Dr. Ledesma, patient's and patient. Plan for transfer to [facility] in a.m., possible transfer to floor today. Level 3 Physician Chasity Rodriguez MD Dec 01, 2016 14:00
[2016-12-01] MEDS: BUDESONIDE-FORMOTEROL 160/4.5 MCG INHALER INH SCH ×2 (14:58→20:12)
[2016-12-01] MEDS: FERROUS SULFATE 325 MG (65 MG ELEMENTAL IRON) TAB PO SCH ×2 (14:58→20:13)
[2016-12-01] MEDS: METOPROLOL TARTRATE 50 MG TAB PO SCH (14:59)
[2016-12-01] MEDS: ALLOPURINOL 300 MG TAB PO SCH (14:59)
--- NOTE | 2016-12-01 15:16 | HHI.NSPN ---
Note Status Status: Progress Note Interval History Interval History 12/01 small left parafalcine hemorrhage. Head CT today was stable. Unchanged neurologically. Labs, Micro, & Vital Signs Results Date Time Temp Pulse Resp B/P Pulse Ox O2 Delivery O2 Flow Rate FiO2 12/01/16 12:05 91 21 12/01/16 12:00 69 12/01/16 12:00 99.0 69 27 136/62 93 12/01/16 11:06 22 12/01/16 10:00 69 12/01/16 09:00 22 12/01/16 08:00 98.7 72 23 126/67 96 12/01/16 08:00 72 12/01/16 07:00 97 Room Air 12/01/16 06:15 99 Room Air 12/01/16 06:15 71 12/01/16 05:22 72 18 120/85 98 Room Air 12/01/16 01:57 71 18 118/78 97 Room Air 11/30/16 22:40 95 11/30/16 22:22 73 18 115/65 97 Room Air 11/30/16 22:13 16 11/30/16 20:51 16 11/30/16 19:03 16 11/30/16 19:00 98.3 73 16 122/74 95 Constitutional Vital Signs Date Time Temp Pulse Resp B/P Pulse Ox O2 Delivery O2 Flow Rate FiO2 12/01/16 12:05 91 21 12/01/16 12:00 69 12/01/16 12:00 99.0 69 27 136/62 93 12/01/16 11:06 22 12/01/16 10:00 69 12/01/16 09:00 22 12/01/16 08:00 98.7 72 23 126/67 96 12/01/16 08:00 72 12/01/16 07:00 97 Room Air 12/01/16 06:15 99 Room Air 12/01/16 06:15 71 12/01/16 05:22 72 18 120/85 98 Room Air 12/01/16 01:57 71 18 118/78 97 Room Air 11/30/16 22:40 95 4/29/17 22:22 73 18 115/65 97 Room Air 11/30/16 22:13 16 11/30/16 20:51 16 11/30/16 19:03 16 11/30/16 19:00 98.3 73 16 122/74 95 Review of Systems/Exam Exam MENTAL STATUS: The patient is awake, alert and fully oriented with normal speech and language. CRANIAL NERVES: Left pupil reactive 3 mm. Right eye prosthesis. Visual addison are full on the left. No vertical or horizontal nyastagmus is noted. Face symmetric, tongue midline. Shoulder shrug and sternocleidomastiod strength symmetric and strong. MOTOR: Strength in the right upper extremity is deltoid 4/5, biceps and triceps 3/5 and dorsiflexion and hand intrinsics 2/5. Left upper extremity range of motion is limited due to pain around the shoulder. Deltoid is 4/5, rest of major muscle groups in the left upper extremity are unremarkable SENSORY: unremarkable to light touch and pinprick throughout. Medications Current Medications Current Medications Sodium Chloride (NS Flush) 2 ml UNSCH PRN IVF FLUSH AFTER USING IV ACCESS; Start 11/30/16 at 19:45; Stop 11/30/16 at 20:15; Status DC Sodium Chloride (NS Flush) 2 ml BID IV FLUSH Last administered on 12/01/16 10: 05; Start 11/30/16 at 21:00 Sodium Chloride (NS Flush) 2 ml UNSCH PRN IVF FLUSH AFTER USING IV ACCESS; Start 11/30/16 at 20:15 Ondansetron HCl (Zofran Inj) 4 mg ONCE ONCE IV PUSH Last administered on 21:31; Start 11/30/16 at 21:30; Stop 11/30/16 at 21:31; Status DC Morphine Sulfate (Morphine Inj) 3 mg ONCE ONCE IV PUSH Last administered on 21:31; Start 11/30/16 at 21:30; Stop 11/30/16 at 21:31; Status DC Acetaminophen (Ofirmev Inj) 1,000 mg Q6H IV Last administered on 12/01/16 14: 58; Start 12/01/16 at 08:30; Stop 12/02/16 at 08:29 Levetriacetam (Keppra) 500 mg BID PO Last administered on 12/01/16 10:06; Start 12/01/16 at 10:00 Morphine Sulfate (Oramorph Sr) 15 mg BID PO Last administered on 12/01/16 10: 06; Start 12/01/16 at 11:00 Allopurinol (Zyloprim) 300 mg DAILY PO Last administered on 12/01/16 14:59; Start 12/01/16 at 13:30 Budesonide/ Formoterol Fumarate (Symbicort 160-4.5 Inh) 2 puff Q12HR INH Last administered on 12/01/16 14:58; Start 12/01/16 at 13:30 Ferrous Sulfate (Ferrous Sulfate) 325 mg BID PO Last administered on 12/01/16 14:58; Start 12/01/16 at 13:30 Metoprolol Tartrate (Lopressor) 25 mg DAILY PO Last administered on 12/01/16 14:59; Start 12/01/16 at 14:00 Morphine Sulfate (Oramorph Sr) 15 mg BID PO ; Start 12/01/16 at 13:30; Stop at 13:49; Status DC Non-Formulary Medication 30 mg BID PO Psoriasis; Start 12/01/16 at 21:00; Status UNV Medical Decision Making MDM Remarks Stable small interhemispheric hemorrhage. Neurologically stable. Plan Plan Remarks Blood pressure control Continue neuro checks Repeat head CT if develops new neurological deficits. Stable to be transferred out of the ICU. Juan Castanon MD Dec 01, 2016 15:16
--- NOTE | 2016-12-01 15:57 | RADRPT ---
EXAM DATE/TIME: 12/01/2016 15:03 [place] COMPARISON: No previous studies available for comparison. INDICATIONS : Pain from fall. MEDICAL HISTORY : None. SURGICAL HISTORY : None. ENCOUNTER: Initial ACUITY: 1 day PAIN SCORE: 7/10 LOCATION: Left shoulder. FINDINGS: No definite fractures, or dislocations are identified. No definite lytic or sclerotic lesion is seen . Limited examination due to technique. CONCLUSION: No definite fracture is seen for technique. Mohit Hunt MD on December 01, 2016 at 15:54 Board Certified Radiologist. This report was verified electronically.
[2016-12-01] MEDS ORDERED: APREMILAST 30 MG PO SCH (21:00)
--- NOTE | 2016-12-01 22:36 | EKG ---
Date Performed: 11/30/2016 Time Performed: 20:22:56 PTAGE: 71 years EKG: ATRIAL FIBRILLATION LEFT AXIS DEVIATION ABNORMAL ECG PREVIOUS TRACING : 09/10/2016 15.01 Compared to prior tracing no significant change DOCTOR: Walter Lopez Interpretating Date/Time 12/01/2016 22:35:41
[2016-12-02] VITALS (13 sets, daily range): BP systolic 113–129; BP diastolic 61–72; PULSE 68–82; RESP 16–30; TEMP 98–100; O2SAT 92–97
[2016-12-02] MEDS: ACETAMINOPHEN 1000 MG/100 ML VIAL IV SCH (03:13)
[2016-12-02 05:01] LABS: BICARBONATE 28.6 MEQ/L (21.0-32.0); MAGNESIUM 1.9 MG/DL (1.5-2.5); POTASSIUM 4.2 MEQ/L (3.5-5.1)
[2016-12-02 06:45] LABS: AUTOMATED NEUTROPHIL # 13.1 TH/MM3 (1.8-7.7); BASOPHIL % 0.3 % (0.0-2.0); EOSINOPHIL # 0.1 TH/MM3 (0-0.4); EOSINOPHIL % 0.9 % (0.0-4.0); HEMATOCRIT 40.3 % (39.0-51.0); HEMO FLAGS DIFF FINAL; LYMPH % 8.2 % (9.0-44.0); LYMPHOCYTE # 1.3 TH/MM3 (1.0-4.8); MEAN CELL VOLUME 83.7 FL (80.0-100.0); MEAN CORPUSCULAR HEMOGLOBIN 28.1 PG (27.0-34.0); MEAN CORPUSCULAR HGB CONC 33.5 % (32.0-36.0); MONO % 10.6 % (0.0-8.0); PLATELET COUNT 232 TH/MM3 (150-450); RED BLOOD COUNT 4.81 MIL/MM3 (4.50-5.90); RED CELL DISTRIBUTION WIDTH 15.6 % (11.6-17.2); WHITE BLOOD COUNT 16.3 TH/MM3 (4.0-11.0)
[2016-12-02] MEDS: levETIRAcetam 500 MG TAB PO SCH ×2 (09:10→20:39)
[2016-12-02] MEDS: METOPROLOL TARTRATE 50 MG TAB PO SCH (09:10)
[2016-12-02] MEDS: FERROUS SULFATE 325 MG (65 MG ELEMENTAL IRON) TAB PO SCH ×2 (09:10→20:40)
[2016-12-02] MEDS: SODIUM CHLORIDE 0.9% FLUSH 10 ML FLUSH IV FLUSH SCH ×2 (09:10→20:41)
[2016-12-02] MEDS: ALLOPURINOL 300 MG TAB PO SCH (09:10)
[2016-12-02] MEDS: MORPHINE SULFATE 15 MG CONTROLLED RELEASE TAB PO SCH ×2 (09:10→20:40)
[2016-12-02] MEDS: BUDESONIDE-FORMOTEROL 160/4.5 MCG INHALER INH SCH ×2 (09:11→20:41)
--- NOTE | 2016-12-02 11:34 | HHI.NSPN ---
(Darvin Coles) Note Status Status: Progress Note (Darvin Coles) Interval History Interval History 11/30: 71-year-old male transferred from [facility] due to small acute interhemispheric hemorrhage. Patient tripped over a parking concrete block falling forwards hitting his face and head. No loss of consciousness. Patient complains of left shoulder pain. He has history of an extensive posterior cervical fusion from C3 to T1 and he underwent a CT of the cervical spine at the referring institution that showed multilevel spondylotic changes but no acute fractures. The hardware is in adequate position. Patient has weakness in the upper extremities, worse on the right side and unchanged after the recent fall. 12/01: small left parafalcine hemorrhage. Head CT today was stable. Unchanged neurologically. 12/02: Patient awake & alert. His only complaint is severe left shoulder pain which prevents him from moving it. Neurologically stable. (Darvin Coles ) Labs, Micro, & Vital Signs Results Allergies Coded Allergies Type Severity Reaction Last Updated Verified No Known Allergies 11/30/16 No Recent Impressions Shoulder X-Ray 12/01/16 0000 Signed Impressions: Service Date/Time: Thursday, December 01, 2016 15:03 - CONCLUSION: No definite fracture is seen for technique. Mohit Hunt MD Head CT 12/01/16 0000 Signed Impressions: Service Date/Time: Thursday, December 01, 2016 11:44 - CONCLUSION: 4 mm thick left paramidline parietal extra-axial hemorrhage along the falx. Lalito Horne MD Chest X-Ray 11/30/16 1945 Signed Impressions: Service Date/Time: Wednesday, November 30, 2016 19:54 - CONCLUSION: No acute cardiopulmonary disease. Mohit Hunt MD ///////08/20 06:00 18:00 06:00 18:00 06:00 18:00 Intake Total 360 ml 410 ml Output Total 1125 ml Balance -765 ml 410 ml Intake Oral 360 ml 240 ml IV Total 170 ml Output Urine Total 1125 ml # Voids 5 # Bowel Movements 0 Laboratory Tests Test 11/30/16 11/30/16 12/01/16 12/02/16 20:10 21:00 06:30 03:50 White Blood Count 12.4 TH/MM3 Red Blood Count 4.71 MIL/MM3 Hemoglobin 13.1 GM/DL Hematocrit 39.2 % Mean Corpuscular Volume 83.2 FL Mean Corpuscular Hemoglobin 27.7 PG Mean Corpuscular Hemoglobin 33.3 % Concent Red Cell Distribution Width 15.3 % Platelet Count 276 TH/MM3 Mean Platelet Volume 10.2 FL Neutrophils (%) (Auto) 81.9 % Lymphocytes (%) (Auto) 10.2 % Monocytes (%) (Auto) 6.3 % Eosinophils (%) (Auto) 1.0 % Basophils (%) (Auto) 0.6 % Neutrophils # (Auto) 10.2 TH/MM3 Lymphocytes # (Auto) 1.3 TH/MM3 Monocytes # (Auto) 0.8 TH/MM3 Eosinophils # (Auto) 0.1 TH/MM3 Basophils # (Auto) 0.1 TH/MM3 CBC Comment DIFF FINAL Differential Comment Prothrombin Time 11.1 SEC Prothromb Time International 1.0 RATIO Ratio Activated Partial 29.2 SEC Thromboplast Time Sodium Level 137 MEQ/L 135 MEQ/L Potassium Level 4.4 MEQ/L 4.2 MEQ/L Chloride Level 99 MEQ/L 97 MEQ/L Carbon Dioxide Level 31.5 MEQ/L 28.6 MEQ/L Anion Gap 7 MEQ/L 9 MEQ/L Blood Urea Nitrogen 12 MG/DL 17 MG/DL Creatinine 0.93 MG/DL 0.91 MG/DL Estimat Glomerular Filtration 81 ML/MIN 83 ML/MIN Rate Random Glucose 93 MG/DL 97 MG/DL Calcium Level 9.0 MG/DL 8.9 MG/DL Blood Type O NEGATIVE Antibody Screen NEGATIVE Blood Bank Comment Urine Color YELLOW Urine Turbidity CLEAR Urine pH 6.5 Urine Specific [place] 1.019 Urine Protein TRACE mg/dL Urine Glucose (UA) NEG mg/dL Urine Ketones NEG mg/dL Urine Occult Blood NEG Urine Nitrite NEG Urine Bilirubin NEG Urine Urobilinogen LESS THAN 2.0 MG/DL Urine Leukocyte Esterase TRACE Urine RBC 2 /hpf Urine WBC 2 /hpf Urine Squamous Epithelial <1 /hpf Cells Urine Mucus FEW /lpf Microscopic Urinalysis Comment Nasal Screen MRSA (PCR) MRSA NOT DETECTED Phosphorus Level 2.9 MG/DL Magnesium Level 1.9 MG/DL Albumin 3.0 GM/DL Test 12/02/16 06:20 White Blood Count 16.3 TH/MM3 Red Blood Count 4.81 MIL/MM3 Hemoglobin 13.5 GM/DL Hematocrit 40.3 % Mean Corpuscular Volume 83.7 FL Mean Corpuscular Hemoglobin 28.1 PG Mean Corpuscular Hemoglobin 33.5 % Concent Red Cell Distribution Width 15.6 % Platelet Count 232 TH/MM3 Mean Platelet Volume 9.7 FL Neutrophils (%) (Auto) 80.0 % Lymphocytes (%) (Auto) 8.2 % Monocytes (%) (Auto) 10.6 % Eosinophils (%) (Auto) 0.9 % Basophils (%) (Auto) 0.3 % Neutrophils # (Auto) 13.1 TH/MM3 Lymphocytes # (Auto) 1.3 TH/MM3 Monocytes # (Auto) 1.7 TH/MM3 Eosinophils # (Auto) 0.1 TH/MM3 Basophils # (Auto) 0.0 TH/MM3 CBC Comment DIFF FINAL Differential Comment Constitutional Vital Signs Date Time Temp Pulse Resp B/P Pulse Ox O2 Delivery O2 Flow Rate FiO2 12/02/16 08:03 93 12/02/16 08:00 95 Room Air 12/02/16 06:00 70 12/02/16 04:00 74 12/02/16 04:00 98.2 74 30 113/63 97 12/02/16 02:00 74 12/02/16 00:00 68 12/02/16 00:00 99.3 68 16 114/64 92 12/01/16 22:12 93 21 12/01/16 22:00 72 12/01/16 20:00 58 12/01/16 20:00 99.2 66 19 120/70 99 12/01/16 19:00 97 Room Air 12/01/16 18:00 88 12/01/16 17:42 17 12/01/16 16:00 73 12/01/16 16:00 97.9 73 18 104/55 95 12/01/16 15:28 17 12/01/16 14:00 76 12/01/16 12:05 91 21 12/01/16 12:00 69 12/01/16 12:00 99.0 69 27 136/62 93 12/02/16 07:00 Intake Total 770 ml Output Total 1125 ml Balance -355 ml (Darvin Coles) Review of Systems/Exam ROS General: Patient feels bad today due to left shoulder pain. Respiratory: Denies any shortness of breath or productive cough. Cardiac: Denies any chest pain, palpitations or irregular heart beat. GI: Denies any abdominal pain, nausea, vomiting or bowel incontinence. : Denies any bladder incontinence. Musculoskeletal: Complains of severe left shoulder pain. Neuro: Chronic upper extremity weakness, right worse than left. No sensation below the elbows bilaterally. Denies any headache or dizziness. Exam General: Patient appears uncomfortable but not in distress. HEENT: Left forehead swelling & ecchymosis with a well-approximated laceration w /o any evident drainage, erythema or streaking. Left pupil round & reacts to light, right eye prosthetic, EOM intact. Resp: CTAB w/o W/R/R but decreased on left, equal excursion, non-laboured, on RA. CV: S1S2 irregularly irregular, w/o M/G/R, cap refill < 3 sec, radial pulses 2+ bilaterally, bilateral lower leg & foot with vascular skin changes. Monitor is atrial fibrillation w/controlled ventricular response. GI: Abdomen soft, nontender, no palpable masses or organomegaly, positive bowel sounds. Musculoskeletal: Left knee abrasions w/o any evident drainage, erythema or streaking. Neuro: AAOx3. Speech clear & appropriate. Follows simple commands. CN II-XII appear grossly intact. Impaired sensation from elbows to fingertips bilaterally. Strength to RUE deltoid 4/5, biceps 3/5, triceps 2/5 , hand intrinsics 1/5, topographical surveyor strength 1/5; on left topographical surveyor strength 4/5 but patient unable to move LUE due to severe left shoulder pain; 5/5 BLE. (Darvin Coles) Medications Current Medications Current Medications Medications (Trade) Dose Ordered Sig/Gabriella Route Start Time Stop Time Status Last Admin (NS Flush) 2 ml BID IV FLUSH 11/30/16 21:00 12/02/16 09:10 (NS Flush) 2 ml UNSCH PRN IVF 11/30/16 20:15 (Keppra) 500 mg BID PO 12/01/16 10:00 12/02/16 09:10 (Oramorph Sr) 15 mg BID PO 12/01/16 11:00 12/02/16 09:10 (Zyloprim) 300 mg DAILY PO 12/01/16 13:30 12/02/16 09:10 (Symbicort 160-4.5 Inh) 2 puff Q12HR INH 12/01/16 13:30 12/02/16 09:11 (Ferrous Sulfate) 325 mg BID PO 12/01/16 13:30 12/02/16 09:10 (Lopressor) 25 mg DAILY PO 12/01/16 14:00 12/02/16 09:10 Patient Own Medication PT OWN MED: Apremil... BID PO 12/01/16 21:00 Hold (fentaNYL INJ) 50 mcg Q1H PRN IV 12/01/16 23:30 12/02/16 09:10 (Darvin Coles) Medical Decision Making MDM Remarks Stable small interhemispheric hemorrhage. Neurologically stable. (Darvin Coles) Plan Plan Remarks Blood pressure control. Continue neuro checks. Repeat head CT if develops new neurological deficits. Stable to be transferred out of the ICU. (Darvin Coles) Attending Statement I have personally seen and examined the patient on the date of this note. Pertinent documentation and study results have been reviewed by the undersigned. I have personally developed the treatment plan and performed medical decision making. Agree with findings, exam, and treatment plan as noted above. Cardiac rhythm-atrial fibrillation Respirations clear and regular Patient remains awake and alert. Conversant and appropriate Prosthetic right eye Visual addison intact on the left Chronic right upper extremity sensorimotor deficit. Left upper and lower extremity sensorimotor function intact Healing abrasions left face No evidence CSF otorrhea or rhinorrhea Discussed with the patient He is stable for transfer to regular floor from a neurosurgery standpoint Continue to mobilize out of bed as tolerated (Frantz Ricks MD) Darvin Coles December 02, 2016 11:34 Frantz Ricks MD December 02, 2016 21:39
[2016-12-02] MEDS ORDERED: DOCUSATE SODIUM 50 MG/SENNA 8.6 MG TAB PO ONE (18:45)
[2016-12-02] MEDS ORDERED: NALOXONE HCL 0.4 MG/ML AMP IV PRN (18:45)
--- NOTE | 2016-12-02 18:47 | HHI.PR ---
Subjective Remarks 61-year-old male who presented after trip and fall with intracranial hemorrhage. Continuing to hold warfarin. He says he is feeling all right today. Reports pain is controlled. He denies any chest pain or shortness of breath. He reports baseline right-sided weakness due to previous injuries. Objective Vital Signs Date Time Temp Pulse Resp B/P Pulse Ox O2 Delivery O2 Flow Rate FiO2 12/02/16 18:00 76 12/02/16 16:00 77 12/02/16 16:00 99.0 77 25 129/72 97 12/02/16 14:00 79 12/02/16 12:00 70 12/02/16 12:00 98.8 70 24 128/61 96 12/02/16 10:00 74 12/02/16 08:03 93 12/02/16 08:00 95 Room Air 12/02/16 08:00 98.0 70 22 129/70 95 12/02/16 08:00 70 12/02/16 06:00 70 12/02/16 04:00 74 12/02/16 04:00 98.2 74 30 113/63 97 12/02/16 02:00 74 12/02/16 00:00 68 12/02/16 00:00 99.3 68 16 114/64 92 12/01/16 22:12 93 21 12/01/16 22:00 72 12/01/16 20:00 58 12/01/16 20:00 99.2 66 19 120/70 99 12/01/16 19:00 97 Room Air I/O 12/01/16 12/01/16 12/01/16 12/02/16 12/02/16 12/02/16 07:00 15:00 23:00 07:00 15:00 23:00 Intake Total 360 ml 205 ml 205 ml 270 ml 420 ml Output Total 1125 ml 350 ml 225 ml Balance -765 ml 205 ml 205 ml -80 ml 195 ml Intake Oral 360 ml 120 ml 120 ml 270 ml 420 ml IV Total 85 ml 85 ml Output Urine Total 1125 ml 350 ml 225 ml # Voids 3 2 # Bowel Movements 0 0 Result Diagram: 12/02/16 0620 12/02/16 0350 Objective Remarks GENERAL: patient sitting up in bed.appears comfortable. Alert and oriented 3. SKIN: Warm and dry. HEAD: Normocephalic. EYES: No scleral icterus. No injection or drainage. NECK: Supple, trachea midline. No JVD. CARDIOVASCULAR: Regular rate and rhythm without murmurs, gallops, or rubs. RESPIRATORY: Breath sounds equal bilaterally. No accessory muscle use. GASTROINTESTINAL: Abdomen soft, non-tender, nondistended. MUSCULOSKELETAL: No cyanosis, or edema. BACK: Nontender without obvious deformity. No CVA tenderness. A/P Assessment and Plan //Trip and fall, no syncope. //Closed head injury with traumatic subarachnoid bleed. CT head as above Neurosurgery following. Appreciate assistance. -Physical therapy and occupational therapy ordered. Continue narcotic pain medicines. Patient is on narcotics at home. //Permanent atrial fibrillation. -Continue metoprolol for rate control. Off" due to intracranial bleed. //Hypertension. -Blood pressure acceptable. continue medications as ordered. Continue to monitor. //Left shoulder injury -Suspect rotator cuff tear. Appreciate OT and PT assistance. //Constipation. Laxatives ordered. Monitor. Prophylaxis. Avoid anticoagulation due to intracranial bleed. Discharge Planning physical therapy and occupational therapy consult ordered She would likely benefit from SNF as he has a sliding right sided weakness, now with left shoulder injury. follow-up physical therapy recommendations. Harish Menezes MD December 02, 2016 18:47
[2016-12-02] MEDS: REMOVE OLD PATCH T-DERMAL SCH (20:00)
[2016-12-02] MEDS ORDERED: ACETAMINOPHEN/HYDROcodone 325 MG/5 MG TAB PO PRN (20:00)
[2016-12-02] MEDS ORDERED: fentaNYL 75 MCG/HR PATCH T-DERMAL SCH (20:00)
[2016-12-02] MEDS: METOPROLOL TARTRATE 25 MG TAB PO SCH (20:39)
[2016-12-02] MEDS: ACETAMINOPHEN/HYDROcodone 325 MG/10 MG TAB PO PRN (22:57)
[2016-12-03] VITALS (10 sets, daily range): BP systolic 94–113; BP diastolic 51–65; PULSE 70–84; RESP 15–26; TEMP 97.3–98.7; O2SAT 92–99
[2016-12-03 04:24] LABS: AUTOMATED NEUTROPHIL # 12.5 TH/MM3 (1.8-7.7); BASOPHIL # 0.2 TH/MM3 (0-0.2); EOSINOPHIL # 0.1 TH/MM3 (0-0.4); EOSINOPHIL % 0.6 % (0.0-4.0); HEMATOCRIT 41.7 % (39.0-51.0); HEMO FLAGS DIFF FINAL; LYMPH % 10.6 % (9.0-44.0); LYMPHOCYTE # 1.7 TH/MM3 (1.0-4.8); MEAN CELL VOLUME 83.4 FL (80.0-100.0); MEAN CORPUSCULAR HEMOGLOBIN 28.1 PG (27.0-34.0); MEAN CORPUSCULAR HGB CONC 33.6 % (32.0-36.0); NEUT % 78.8 % (16.0-70.0); PLATELET COUNT 221 TH/MM3 (150-450); RED BLOOD COUNT 5.01 MIL/MM3 (4.50-5.90); WHITE BLOOD COUNT 15.9 TH/MM3 (4.0-11.0)
[2016-12-03 04:43] LABS: BICARBONATE 27.9 MEQ/L (21.0-32.0); POTASSIUM 4.2 MEQ/L (3.5-5.1)
[2016-12-03] MEDS ORDERED: SODIUM CHLORID 0.9% 500 ML INJ 500 ML IV ONE (07:45)
[2016-12-03] MEDS: SODIUM CHLOR 0.9% 1000 ML INJ 1,000 ML IV SCH ×2 (08:26→14:52)
[2016-12-03] MEDS: FERROUS SULFATE 325 MG (65 MG ELEMENTAL IRON) TAB PO SCH ×2 (09:44→20:28)
[2016-12-03] MEDS: MORPHINE SULFATE 15 MG CONTROLLED RELEASE TAB PO SCH ×2 (09:45→20:28)
[2016-12-03] MEDS: MORPHINE SULFATE 4 MG/ML INJ IV PRN ×2 (09:46→20:28)
[2016-12-03] MEDS: ALLOPURINOL 300 MG TAB PO SCH (09:47)
[2016-12-03] MEDS: SODIUM CHLORIDE 0.9% FLUSH 10 ML FLUSH IV FLUSH SCH ×2 (09:47→20:28)
[2016-12-03] MEDS: levETIRAcetam 500 MG TAB PO SCH ×2 (09:47→20:28)
[2016-12-03] MEDS: METOPROLOL TARTRATE 25 MG TAB PO SCH ×2 (09:47→20:33)
[2016-12-03] MEDS: REMOVE OLD PATCH T-DERMAL SCH (10:56)
--- NOTE | 2016-12-03 11:37 | HHI.NSPN ---
(Darvin Coles) Note Status Status: Progress Note (SanketDarvin LION) Interval History Interval History 11/30: 71-year-old male transferred from [facility] due to small acute interhemispheric hemorrhage. Patient tripped over a parking concrete block falling forwards hitting his face and head. No loss of consciousness. Patient complains of left shoulder pain. He has history of an extensive posterior cervical fusion from C3 to T1 and he underwent a CT of the cervical spine at the referring institution that showed multilevel spondylotic changes but no acute fractures. The hardware is in adequate position. Patient has weakness in the upper extremities, worse on the right side and unchanged after the recent fall. 12/01: small left parafalcine hemorrhage. Head CT today was stable. Unchanged neurologically. 12/02: Patient awake & alert. His only complaint is severe left shoulder pain which prevents him from moving it. Neurologically stable. 12/03: Patient doing well. He had a slight headache earlier that has resolved. His major complaint is left shoulder pain. (Darvin Coles) Labs, Micro, & Vital Signs Results Allergies Coded Allergies Type Severity Reaction Last Updated Verified No Known Allergies 11/30/16 No Recent Impressions Shoulder X-Ray 12/01/16 0000 Signed Impressions: Service Date/Time: Thursday, December 01, 2016 15:03 - CONCLUSION: No definite fracture is seen for technique. Mohit Hunt MD Head CT 12/01/16 0000 Signed Impressions: Service Date/Time: Thursday, December 01, 2016 11:44 - CONCLUSION: 4 mm thick left paramidline parietal extra-axial hemorrhage along the falx. Lalito Horne MD Chest X-Ray 11/30/16 194 Signed Impressions: Service Date/Time: Wednesday, November 30, 2016 19:54 - CONCLUSION: No acute cardiopulmonary disease. Mohit Hunt MD 12/01///175//175//175// 06:00 18:00 06:00 18:00 06:00 18:00 Intake Total 360 ml 410 ml 690 ml 240 ml Output Total 1125 ml 575 ml 350 ml Balance -765 ml 410 ml 115 ml -110 ml Intake Oral 360 ml 240 ml 690 ml 240 ml IV Total 170 ml Output Urine Total 1125 ml 575 ml 350 ml # Voids 5 # Bowel Movements 0 0 0 Laboratory Tests Test 11/30/16 11/30/16 12/01/16 12/02/16 20:10 21:00 06:30 03:50 White Blood Count 12.4 TH/MM3 Red Blood Count 4.71 MIL/MM3 Hemoglobin 13.1 GM/DL Hematocrit 39.2 % Mean Corpuscular Volume 83.2 FL Mean Corpuscular Hemoglobin 27.7 PG Mean Corpuscular Hemoglobin 33.3 % Concent Red Cell Distribution Width 15.3 % Platelet Count 276 TH/MM3 Mean Platelet Volume 10.2 FL Neutrophils (%) (Auto) 81.9 % Lymphocytes (%) (Auto) 10.2 % Monocytes (%) (Auto) 6.3 % Eosinophils (%) (Auto) 1.0 % Basophils (%) (Auto) 0.6 % Neutrophils # (Auto) 10.2 TH/MM3 Lymphocytes # (Auto) 1.3 TH/MM3 Monocytes # (Auto) 0.8 TH/MM3 Eosinophils # (Auto) 0.1 TH/MM3 Basophils # (Auto) 0.1 TH/MM3 CBC Comment DIFF FINAL Differential Comment Prothrombin Time 11.1 SEC Prothromb Time International 1.0 RATIO Ratio Activated Partial 29.2 SEC Thromboplast Time Sodium Level 137 MEQ/L 135 MEQ/L Potassium Level 4.4 MEQ/L 4.2 MEQ/L Chloride Level 99 MEQ/L 97 MEQ/L Carbon Dioxide Level 31.5 MEQ/L 28.6 MEQ/L Anion Gap 7 MEQ/L 9 MEQ/L Blood Urea Nitrogen 12 MG/DL 17 MG/DL Creatinine 0.93 MG/DL 0.91 MG/DL Estimat Glomerular Filtration 81 ML/MIN 83 ML/MIN Rate Random Glucose 93 MG/DL 97 MG/DL Calcium Level 9.0 MG/DL 8.9 MG/DL Blood Type O NEGATIVE Antibody Screen NEGATIVE Blood Bank Comment Urine Color YELLOW Urine Turbidity CLEAR Urine pH 6.5 Urine Specific [place] 1.019 Urine Protein TRACE mg/dL Urine Glucose (UA) NEG mg/dL Urine Ketones NEG mg/dL Urine Occult Blood NEG Urine Nitrite NEG Urine Bilirubin NEG Urine Urobilinogen LESS THAN 2.0 MG/DL Urine Leukocyte Esterase TRACE Urine RBC 2 /hpf Urine WBC 2 /hpf Urine Squamous Epithelial <1 /hpf Cells Urine Mucus FEW /lpf Microscopic Urinalysis Comment Nasal Screen MRSA (PCR) MRSA NOT DETECTED Phosphorus Level 2.9 MG/DL Magnesium Level 1.9 MG/DL Albumin 3.0 GM/DL Test 12/02/16 12/03/16 06:20 04:04 White Blood Count 16.3 TH/MM3 15.9 TH/MM3 Red Blood Count 4.81 MIL/MM3 5.01 MIL/MM3 Hemoglobin 13.5 GM/DL 14.0 GM/DL Hematocrit 40.3 % 41.7 % Mean Corpuscular Volume 83.7 FL 83.4 FL Mean Corpuscular Hemoglobin 28.1 PG 28.1 PG Mean Corpuscular Hemoglobin 33.5 % 33.6 % Concent Red Cell Distribution Width 15.6 % 15.0 % Platelet Count 232 TH/MM3 221 TH/MM3 Mean Platelet Volume 9.7 FL 9.8 FL Neutrophils (%) (Auto) 80.0 % 78.8 % Lymphocytes (%) (Auto) 8.2 % 10.6 % Monocytes (%) (Auto) 10.6 % 9.0 % Eosinophils (%) (Auto) 0.9 % 0.6 % Basophils (%) (Auto) 0.3 % 1.0 % Neutrophils # (Auto) 13.1 TH/MM3 12.5 TH/MM3 Lymphocytes # (Auto) 1.3 TH/MM3 1.7 TH/MM3 Monocytes # (Auto) 1.7 TH/MM3 1.4 TH/MM3 Eosinophils # (Auto) 0.1 TH/MM3 0.1 TH/MM3 Basophils # (Auto) 0.0 TH/MM3 0.2 TH/MM3 CBC Comment DIFF FINAL DIFF FINAL Differential Comment Sodium Level 135 MEQ/L Potassium Level 4.2 MEQ/L Chloride Level 98 MEQ/L Carbon Dioxide Level 27.9 MEQ/L Anion Gap 9 MEQ/L Blood Urea Nitrogen 15 MG/DL Creatinine 0.97 MG/DL Estimat Glomerular Filtration 77 ML/MIN Rate Random Glucose 107 MG/DL Calcium Level 9.2 MG/DL Constitutional Vital Signs Date Time Temp Pulse Resp B/P Pulse Ox O2 Delivery O2 Flow Rate FiO2 12/03/16 10:00 72 12/03/16 08:00 97.3 72 26 94/51 94 12/03/16 08:00 76 12/03/16 06:00 83 12/03/16 04:00 97.7 76 24 94/53 94 12/03/16 04:00 76 12/03/16 03:04 92 21 12/03/16 02:00 76 12/03/16 00:00 84 12/03/16 00:00 98.7 84 18 106/59 93 12/02/16 22:00 82 12/02/16 20:00 76 12/02/16 20:00 100.0 80 19 118/72 96 12/02/16 18:00 76 12/02/16 16:00 77 12/02/16 16:00 99.0 77 25 129/72 97 12/02/16 14:00 79 12/02/16 12:00 70 12/02/16 12:00 98.8 70 24 128/61 96 12/03/16 07:00 Intake Total 930 ml Output Total 925 ml Balance 5 ml (Darvin Coles) Review of Systems/Exam ROS General: Denies any fever or chills. Respiratory: Denies any shortness of breath or productive cough. Cardiac: Denies any chest pain, palpitations or irregular heart beat. GI: Denies any abdominal pain, nausea, vomiting or bowel incontinence. : Denies any bladder incontinence. Musculoskeletal: Still with severe left shoulder pain. Neuro: Slight headache earlier that has resolved. Chronic upper extremity weakness, right worse than left. No sensation below the elbows bilaterally. Denies any dizziness. Exam General: Patient appears comfortable, NAD. HEENT: Left forehead swelling & ecchymosis with a well-approximated laceration w /o any evident drainage, erythema or streaking. Resp: CTAB w/o W/R/R, equal excursion, non-laboured, on RA. CV: S1S2 irregularly irregular, w/o M/G/R, cap refill < 3 sec, radial pulses 2+ bilaterally, bilateral lower leg & foot with vascular skin changes. Monitor is atrial fibrillation w/controlled ventricular response. GI: Abdomen soft, nontender, positive bowel sounds. Musculoskeletal: Left knee abrasions w/o any evident drainage, erythema or streaking. Neuro: AAOx3. Speech clear & appropriate. Follows simple commands. Impaired sensation from elbows to fingertips bilaterally. Strength to RUE deltoid 4/5, biceps 3/5, triceps 2/5 , hand intrinsics 1/5, civil celebrant strength 1/5; on left civil celebrant strength 4/5 but patient unable to move LUE due to severe left shoulder pain; 5/ 5 BLE. (Darvin Coles) Medications Current Medications Current Medications Medications (Trade) Dose Ordered Sig/Gabriella Route Start Time Stop Time Status Last Admin (NS Flush) 2 ml BID IV FLUSH 11/30/16 21:00 12/03/16 09:47 (NS Flush) 2 ml UNSCH PRN IVF 11/30/16 20:15 12/02/16 12:52 (Keppra) 500 mg BID PO 12/01/16 10:00 12/03/16 09:47 (Oramorph Sr) 15 mg BID PO 12/01/16 11:00 12/03/16 09:45 (Zyloprim) 300 mg DAILY PO 12/01/16 13:30 12/03/16 09:47 (Symbicort 160-4.5 Inh) 2 puff Q12HR INH 12/01/16 13:30 12/02/16 20:41 (Ferrous Sulfate) 325 mg BID PO 12/01/16 13:30 12/03/16 09:44 Patient Own Medication PT OWN MED: Apremil... BID PO 12/01/16 21:00 Hold (Duragesic 75 Mcg Patch.72 Hr) 1 patch Q3D T-DERMAL 12/02/16 20:00 12/02/16 20:41 ([place] 5-325 Mg) 1 tab Q4H PRN PO 12/02/16 20:00 ([place] 10-325 Mg) 1 tab Q4H PRN PO 12/02/16 20:00 12/02/16 22:57 (Morphine Inj) 4 mg Q3H PRN IV 12/02/16 20:00 12/03/16 09:46 (Narcan Inj) 0.4 mg UNSCH PRN IV 12/02/16 18:45 (Lopressor) 25 mg BID PO 12/02/16 21:00 12/03/16 09:47 Miscellaneous Information 1 1 Q3D T-DERMAL 12/02/16 20:00 12/03/16 10:56 (NS 1000 ml Inj) 1,000 ml @ 125 mls/hr Q8H IV 12/03/16 07:45 12/03/16 08:26 (Darvin Coles) Medical Decision Making MDM Remarks Stable small interhemispheric hemorrhage. Neurologically stable. Mild hyponatremia (Darvin Coles) Plan Plan Remarks Blood pressure control. Continue neuro checks. Repeat head CT if develops new neurological deficits. Stable to be transferred out of the ICU. Okay to start PT & OT from NSGY's perspective. (Darvin Coles) Attending Statement I have personally seen and examined the patient on the date of this note. Pertinent documentation and study results have been reviewed by the undersigned. I have personally developed the treatment plan and performed medical decision making. Agree with findings, exam, and treatment plan as noted above. No complaints significant headache dizziness, blurred vision. He complains of left shoulder pain. On examination he has persistent significant edema in the left shoulder and proximal left arm with limited range of motion. Sensorimotor function is intact in the distal left upper extremity. He remains in atrial fibrillation-he states he is on no medications for this. Continue physical therapy. Increase activity as tolerated from neurosurgery standpoint. Follow-up CT depending on clinical presentation and symptoms. (Frantz Ricks MD) Darvin Coles December 03, 2016 11:37 Frantz Ricks MD December 03, 2016 17:58
[2016-12-03] MEDS: ACETAMINOPHEN/HYDROcodone 325 MG/10 MG TAB PO PRN (14:52)
[2016-12-03] MEDS ORDERED: DOCUSATE SODIUM 50 MG/SENNA 8.6 MG TAB PO ONE (19:00)
[2016-12-03] MEDS ORDERED: MAGNESIUM HYDROXIDE SUSP 30 ML CUP PO ONE (19:00)
--- NOTE | 2016-12-03 19:09 | HHI.PR ---
Subjective Remarks Patient seen this afternoon around 3 PM. Reports left shoulder pain continues without improvement. Unable to move left shoulder. Denies any chest pain. Denies shortness of breath. Objective Vital Signs Date Time Temp Pulse Resp B/P Pulse Ox O2 Delivery O2 Flow Rate FiO2 12/03/16 16:54 97.9 76 18 113/65 99 12/03/16 12:00 97.3 76 15 106/60 95 12/03/16 12:00 72 12/03/16 10:00 72 12/03/16 08:00 97.3 72 26 94/51 94 12/03/16 08:00 76 12/03/16 06:00 83 12/03/16 04:00 97.7 76 24 94/53 94 12/03/16 04:00 76 12/03/16 03:04 92 21 12/03/16 02:00 76 12/03/16 00:00 84 12/03/16 00:00 98.7 84 18 106/59 93 12/02/16 22:00 82 12/02/16 20:00 76 12/02/16 20:00 100.0 80 19 118/72 96 I/O 12/02/16 12/02/16 12/02/16 12/03/16 12/03/16 12/03/16 07:00 15:00 23:00 07:00 15:00 23:00 Intake Total 205 ml 270 ml 540 ml 120 ml 1439 ml Output Total 350 ml 400 ml 175 ml 200 ml Balance 205 ml -80 ml 140 ml -55 ml 1239 ml Intake Oral 120 ml 270 ml 540 ml 120 ml 420 ml IV Total 85 ml 1019 ml Output Urine Total 350 ml 400 ml 175 ml 200 ml # Voids 2 # Bowel Movements 0 0 0 0 Result Diagram: 12/03/16 0404 12/03/16 0404 Imaging Last Impressions Shoulder X-Ray 12/01/16 0000 Signed Impressions: Service Date/Time: Thursday, December 01, 2016 15:03 - CONCLUSION: No definite fracture is seen for kelle. Bal. Malik Hunt MD Head CT 12/01/16 0000 Signed Impressions: Service Date/Time: Thursday, December 01, 2016 11:44 - CONCLUSION: 4 mm thick left paramidline parietal extra-axial hemorrhage along the falx. Lalito Horne MD Chest X-Ray 11/30/161944 Signed Impressions: Service Date/Time: Wednesday, November 30, 2016 19:54 - CONCLUSION: No acute cardiopulmonary disease. Mohit Hunt MD Objective Remarks GENERAL: patient sitting up in bed.appears comfortable. Alert and oriented 3. SKIN: Warm and dry. HEAD: Normocephalic. EYES: No scleral icterus. No injection or drainage. NECK: Supple, trachea midline. No JVD. CARDIOVASCULAR: Regular rate and rhythm without murmurs, gallops, or rubs. RESPIRATORY: Breath sounds equal bilaterally. No accessory muscle use. GASTROINTESTINAL: Abdomen soft, non-tender, nondistended. MUSCULOSKELETAL: No cyanosis, or edema. left shoulder with generalized swelling , stiffness, muscle spasm. tenderness to palpation over entire left shoulder. No erythema. No crepitus.patient unable to raise arm at shoulder. Slight superficial abrasions laterally over the shoulder, without erythema. BACK: Nontender without obvious deformity. No CVA tenderness. A/P Assessment and Plan //Trip and fall, no syncope. //Closed head injury with traumatic subarachnoid bleed. CT head as above Neurosurgery following. Appreciate assistance. -Physical therapy and occupational therapy appreciated Continue narcotic pain medicines. Patient is on narcotics at home. -12/03. Hypotension on fentanyl. Decrease fentanyl. Patient will likely need rehabilitation placement. //Permanent atrial fibrillation. -Continue metoprolol for rate control. Off anticoagulation due to intracranial bleed. //Hypertension. -/2. Low blood pressure in the morning. Decrease pain medication, small fluid bolus with improvement. Continue to monitor and adjust medications as necessary. //Left shoulder injury -Suspect rotator cuff tear. Appreciate OT and PT assistance. -/2 -induration and firmness of tissue around left shoulder. No crepitus. Even though x-ray has been done, this was a poor study. Patient does have leukocytosis. CT shoulder ordered to rule out infection/fracture/hematoma. //Leukocytosis. Likely secondary to pain/distress. No fevers. We'll continue to monitor for signs of infection. //Constipation. Laxatives ordered. Monitor. Prophylaxis. Avoid anticoagulation due to intracranial bleed. Discharge Planning physical therapy and occupational therapy consult ordered he would likely benefit from SNF as he has pre-existing right sided weakness, now with left shoulder injury. follow-up physical therapy recommendations. Harish Menezes MD December 03, 2016 19:09
[2016-12-03] MEDS ORDERED: IOHEXOL 350 MG/ML 10 ML VIAL (for RAD DIAG) IV ONE (19:15)
--- NOTE | 2016-12-03 20:28 | RADRPT ---
EXAM DATE/TIME: 12/03/2016 19:11 [place] COMPARISON: SHOULDER LEFT [facility] (2VWS), December 01, 2016, 15:03. INDICATIONS : Fall. Pain and soft tissue swelling left shoulder. IV CONTRAST: 95 cc Omnipaque 350 (iohexol) IV RADIATION DOSE: 26.28 CTDIvol (mGy) MEDICAL HISTORY : Cardiovascular disease. Hypertension. SURGICAL HISTORY : Fusion, cervical. Appendectomy. ENCOUNTER: Initial ACUITY: 3 days PAIN SCALE: 8/10 LOCATION: Left shoulder TECHNIQUE: Volumetric scanning of the shoulder was performed. Using automated exposure control a nd adjustment of the mA and/or kV according to patient size, radiation dose was kept as low as reason ably achievable to obtain optimal diagnostic quality images. FINDINGS: There is a comminuted fracture of the distal clavicle. The acromioclavicular joint rem ains aligned. There is only mild superior displacement of the proximal fragment in relationship to th e distal fragment in the order of 6 mm. No other acute fracture is seen. The glenohumeral joint is normally aligned. There does appear to be a chronic healed fracture deformity at the anterior left se cond rib. CONCLUSION: Acute fracturing of the distal clavicle approximately 1.8 cm proximal to the distal a spect of the clavicle. The acromioclavicular joint remains aligned. Isael Mata MD on December 03, 2016 at 20:11 Board Certified Radiologist. This report was verified electronically.
[2016-12-04 00:47] VITALS: BP 116/64; PULSE 72; RESP 17; TEMP 97.1; O2SAT 99
[2016-12-04] MEDS: MORPHINE SULFATE 4 MG/ML INJ IV PRN ×2 (01:42→08:42)
[2016-12-04] MEDS: ACETAMINOPHEN/HYDROcodone 325 MG/10 MG TAB PO PRN ×3 (03:12→21:47)
[2016-12-04] MEDS: SODIUM CHLOR 0.9% 1000 ML INJ 1,000 ML IV SCH (04:40)
[2016-12-04 05:12] VITALS: BP 111/69; PULSE 72; RESP 17; TEMP 97.6; O2SAT 99
--- NOTE | 2016-12-04 07:44 | MB ---
cc: ANETA YBARRA,SHARIFA GERARDO MD DATE OF CONSULTATION 12/04/2016 DATE OF ADMISSION 11/30/2016 REASON FOR CONSULTATION Left clavicle fracture. CONSULTING PHYSICIAN Dr. Sharifa Gee HISTORY Cirilo is a 71-year male who has chronic atrial fibrillation. He was walking when he tripped over a parking block. He fell and landed on his left side. He also hit his head. He was initially taken to [facility]. He was subsequently transferred to [facility] because of some intracranial bleeding. Currently complains of left shoulder pain. Pain is worse with movement. He has weakness of his right arm from previous injury. He was previously on Coumadin, but stopped that several weeks ago. He states he gets minimal pain at rest. He does have increased shoulder pain with motion. PAST MEDICAL HISTORY Surgeries: 1. Appendectomy 2. Tonsillectomy ILLNESSES 1. COPD 2. Atrial fibrillation 3. Gout 4. Hypertension 5. Renal insufficiency 6. History of CVA 7. Hypothyroidism 8. Hypertension 9. History of spinal cord injury. ALLERGIES None MEDICATIONS Medications include: 1. Oxycodone 1. Morphine 2. Aquaphor 3. Omeprazole 4. Lopressor 5. Levothyroxine 6. Allopurinol 7. Minocycline 8. Prozac 9. Symbicort 10. Combivent SOCIAL HISTORY The patient denies alcohol, tobacco or drug use. FAMILY HISTORY Noncontributory REVIEW OF SYSTEMS The patient denies headache, visual changes, neck pain, chest pain, shortness of breath, abdominal pain, nausea, vomiting or recent weight loss. He complains of left shoulder pain. PHYSICAL EXAMINATION The patient is a pleasant 71-year-old male who is awake and alert. He is alert and oriented x3. HEAD: The patient is normocephalic except for a small laceration on his forehead. NECK: Soft and nontender. Trachea is midline. ABDOMEN: Soft, nontender, and nondistended. EXTREMITIES: Examination of the right arm reveals no obvious pain or deformity with shoulder, elbow or wrist motion. He has weakness of his right arm. He has a wrist drop of the right arm. He has a palpable radial pulse. Examination of left arm reveals moderate swelling of the shoulder. He is diffusely tender around the clavicle. He has no pain with elbow, wrist or finger motion. He has intact sensation in the radial and median nerve distribution. He has a palpable radial pulse. Examination of bilateral lower extremities reveals no significant pain with hip, knee or ankle motion is intact. He has intact sensation in both feet. Dorsalis pedis pulses are palpable. X-RAYS X-rays and CT scan of the left shoulder were reviewed. X-rays reveal a mildly displaced left distal clavicle fracture. The glenohumeral joint is reduced. There is moderate soft tissue swelling. IMPRESSION 1. History of CVA 2. Left clavicle fracture. PLAN Treatment options were discussed with the patient. At this point, I would recommend the patient continue to use the sling. This fracture will likely take six to eight weeks to heal. The fracture if relatively well-aligned. If the fracture does heel, he should have relatively normal function. If the fracture does not heal, he may need surgical intervention in the future for treatment of nonunion. The risks and benefits of surgical and nonsurgical options were discussed in-depth with the patient. The patient elects to proceed with nonoperative treatment. All questions were answered. A mid-level provider in my office, nurse practitioner or PA, may see this patient on a follow-up basis and continue to implement the objective of this plan including: Starting or adjusting medications, injections of muscle, tendon, bursa or joints, cast application, orthotic or brace application, physical therapy, further radiographic studies including x-ray, MRI, CT, ultrasounds or bone scan, vascular studies, neurologic studies, or other specialist consultations, and proceeding with surgical management as appropriate. MD KATYA Mena/NAN /7:18 AM /7:25 AM
[2016-12-04 08:00] VITALS: BP 106/65; PULSE 72; RESP 20; TEMP 96.5; O2SAT 97
[2016-12-04 08:28] LABS: AUTOMATED NEUTROPHIL # 7.5 TH/MM3 (1.8-7.7); BASOPHIL # 0.1 TH/MM3 (0-0.2); BASOPHIL % 0.9 % (0.0-2.0); EOSINOPHIL # 0.5 TH/MM3 (0-0.4); EOSINOPHIL % 4.8 % (0.0-4.0); HEMATOCRIT 41.3 % (39.0-51.0); HEMO FLAGS DIFF FINAL; LYMPH % 15.7 % (9.0-44.0); LYMPHOCYTE # 1.8 TH/MM3 (1.0-4.8); MEAN CELL VOLUME 83.7 FL (80.0-100.0); MEAN CORPUSCULAR HGB CONC 32.3 % (32.0-36.0); MONO % 12.2 % (0.0-8.0); NEUT % 66.4 % (16.0-70.0); PLATELET COUNT 216 TH/MM3 (150-450); RED BLOOD COUNT 4.93 MIL/MM3 (4.50-5.90); RED CELL DISTRIBUTION WIDTH 15.5 % (11.6-17.2); WHITE BLOOD COUNT 11.3 TH/MM3 (4.0-11.0)
[2016-12-04] MEDS: METOPROLOL TARTRATE 25 MG TAB PO SCH ×2 (08:39→21:46)
[2016-12-04] MEDS: ALLOPURINOL 300 MG TAB PO SCH (08:40)
[2016-12-04] MEDS: BUDESONIDE-FORMOTEROL 160/4.5 MCG INHALER INH SCH ×2 (08:40→21:47)
[2016-12-04 08:41] LABS: BICARBONATE 27.2 MEQ/L (21.0-32.0); MAGNESIUM 2.2 MG/DL (1.5-2.5)
[2016-12-04] MEDS: levETIRAcetam 500 MG TAB PO SCH ×2 (08:41→21:47)
[2016-12-04] MEDS: MORPHINE SULFATE 15 MG CONTROLLED RELEASE TAB PO SCH ×2 (08:42→21:47)
[2016-12-04] MEDS: SODIUM CHLORIDE 0.9% FLUSH 10 ML FLUSH IV FLUSH SCH ×2 (08:43→21:48)
[2016-12-04] MEDS: FERROUS SULFATE 325 MG (65 MG ELEMENTAL IRON) TAB PO SCH ×2 (08:52→21:47)
[2016-12-04] MEDS ORDERED: METO25TA3 PO (09:54)
[2016-12-04] MEDS ORDERED: OXYC-392 PO (09:54)
[2016-12-04] MEDS ORDERED: FENT75T T-DERMAL (09:54)
[2016-12-04] MEDS ORDERED: LEVE500 PO (09:54)
[2016-12-04] MEDS ORDERED: GABA100C4 PO (09:54)
[2016-12-04] MEDS ORDERED: MORP1TAB24 PO (09:54)
[2016-12-04 12:00] VITALS: BP 101/59; PULSE 73; RESP 18; TEMP 96.5; O2SAT 97
[2016-12-04] MEDS ORDERED: DOCUSATE SODIUM 50 MG/SENNA 8.6 MG TAB PO ONE (13:00)
[2016-12-04] MEDS ORDERED: SOD PHOSPHATE/SOD BIPHOSPHATE (ADULT) ENEMA 133ML RECTAL ONE (13:00)
[2016-12-04] MEDS ORDERED: BISACODYL 10 MG SUPP RECTAL ONE (13:00)
[2016-12-04] MEDS ORDERED: MAGNESIUM HYDROXIDE SUSP 30 ML CUP PO ONE (13:00)
--- NOTE | 2016-12-04 14:44 | HHI.NSPN ---
(Darvin Coles) Note Status Status: Progress Note (Darvin Coles) Interval History Interval History 11/30: 71-year-old male transferred from [facility] due to small acute interhemispheric hemorrhage. Patient tripped over a parking concrete block falling forwards hitting his face and head. No loss of consciousness. Patient complains of left shoulder pain. He has history of an extensive posterior cervical fusion from C3 to T1 and he underwent a CT of the cervical spine at the referring institution that showed multilevel spondylotic changes but no acute fractures. The hardware is in adequate position. Patient has weakness in the upper extremities, worse on the right side and unchanged after the recent fall. 12/01: small left parafalcine hemorrhage. Head CT today was stable. Unchanged neurologically. 12/02: Patient awake & alert. His only complaint is severe left shoulder pain which prevents him from moving it. Neurologically stable. 12/03: Patient doing well. He had a slight headache earlier that has resolved. His major complaint is left shoulder pain. 12/04: Patient continues to do well. His only complaint is the left shoulder pain. He also endorses being constipated and states Nursing gave him an enema prior to being seen. (Darvin Coles) Labs, Micro, & Vital Signs Results Allergies Coded Allergies Type Severity Reaction Last Updated Verified No Known Allergies 11/30/16 No Recent Impressions Upper Extremity CT 12/03/16 0000 Signed Impressions: Service Date/Time: Saturday, December 03, 2016 19:11 - CONCLUSION: Acute fracturing of the distal clavicle approximately 1.8 cm proximal to the distal aspect of the clavicle. The acromioclavicular joint remains aligned. Isael Mata MD ///// 06:00 18:00 06:00 18:00 06:00 18:00 Intake Total 410 ml 690 ml 240 ml 1439 ml 120 ml Output Total 575 ml 350 ml 200 ml 250 ml 350 ml Balance 410 ml 115 ml -110 ml 1239 ml -250 ml -230 ml Intake Oral 240 ml 690 ml 240 ml 420 ml 120 ml IV Total 170 ml 1019 ml Output Urine Total 575 ml 350 ml 200 ml 250 ml 350 ml # Voids 5 # Bowel Movements 0 0 0 Laboratory Tests Test 12/02/16 12/02/16 12/03/16 12/04/16 03:50 06:20 04:04 06:29 Sodium Level 135 MEQ/L 135 MEQ/L 135 MEQ/L Potassium Level 4.2 MEQ/L 4.2 MEQ/L 4.0 MEQ/L Chloride Level 97 MEQ/L 98 MEQ/L 99 MEQ/L Carbon Dioxide Level 28.6 MEQ/L 27.9 MEQ/L 27.2 MEQ/L Anion Gap 9 MEQ/L 9 MEQ/L 9 MEQ/L Blood Urea Nitrogen 17 MG/DL 15 MG/DL 15 MG/DL Creatinine 0.91 MG/DL 0.97 MG/DL 0.77 MG/DL Estimat Glomerular Filtration 83 ML/MIN 77 ML/MIN 100 ML/MIN Rate Random Glucose 97 MG/DL 107 MG/DL 75 MG/DL Calcium Level 8.9 MG/DL 9.2 MG/DL 8.9 MG/DL Phosphorus Level 2.9 MG/DL 3.2 MG/DL Magnesium Level 1.9 MG/DL 2.2 MG/DL Albumin 3.0 GM/DL 2.6 GM/DL White Blood Count 16.3 TH/MM3 15.9 TH/MM3 11.3 TH/MM3 Red Blood Count 4.81 MIL/MM3 5.01 MIL/MM3 4.93 MIL/MM3 Hemoglobin 13.5 GM/DL 14.0 GM/DL 13.3 GM/DL Hematocrit 40.3 % 41.7 % 41.3 % Mean Corpuscular Volume 83.7 FL 83.4 FL 83.7 FL Mean Corpuscular Hemoglobin 28.1 PG 28.1 PG 27.0 PG Mean Corpuscular Hemoglobin 33.5 % 33.6 % 32.3 % Concent Red Cell Distribution Width 15.6 % 15.0 % 15.5 % Platelet Count 232 TH/MM3 221 TH/MM3 216 TH/MM3 Mean Platelet Volume 9.7 FL 9.8 FL 10.4 FL Neutrophils (%) (Auto) 80.0 % 78.8 % 66.4 % Lymphocytes (%) (Auto) 8.2 % 10.6 % 15.7 % Monocytes (%) (Auto) 10.6 % 9.0 % 12.2 % Eosinophils (%) (Auto) 0.9 % 0.6 % 4.8 % Basophils (%) (Auto) 0.3 % 1.0 % 0.9 % Neutrophils # (Auto) 13.1 TH/MM3 12.5 TH/MM3 7.5 TH/MM3 Lymphocytes # (Auto) 1.3 TH/MM3 1.7 TH/MM3 1.8 TH/MM3 Monocytes # (Auto) 1.7 TH/MM3 1.4 TH/MM3 1.4 TH/MM3 Eosinophils # (Auto) 0.1 TH/MM3 0.1 TH/MM3 0.5 TH/MM3 Basophils # (Auto) 0.0 TH/MM3 0.2 TH/MM3 0.1 TH/MM3 CBC Comment DIFF FINAL DIFF FINAL DIFF FINAL Differential Comment Constitutional Vital Signs Date Time Temp Pulse Resp B/P Pulse Ox O2 Delivery O2 Flow Rate FiO2 12/04/16 12:00 96.5 73 18 101/59 97 12/04/16 08:00 96.5 72 20 106/65 97 12/04/16 05:12 97.6 72 17 111/69 99 12/04/16 00:47 97.1 72 17 116/64 99 12/03/16 20:19 97.6 70 17 102/59 99 12/03/16 16:54 97.9 76 18 113/65 99 12/04/16 07:00 Intake Total 1559 ml Output Total 800 ml Balance 759 ml (Darvin Coles) Review of Systems/Exam ROS General: Denies any fever or chills. Respiratory: Patient states he has some cough secondary to his COPD. Denies any shortness of breath. Cardiac: Denies any chest pain, palpitations or irregular heart beat. GI: Patient states he is constipated. Denies any abdominal pain, nausea, vomiting or bowel incontinence. : Denies any bladder incontinence. Musculoskeletal: Left shoulder pain that is severe. Neuro: Chronic upper extremity weakness, right worse than left. No sensation below the elbows bilaterally. Denies any headache or dizziness. Exam General: Patient appears comfortable, NAD. HEENT: Left forehead swelling & ecchymosis with a well-approximated laceration w /o any evident drainage, erythema or streaking. Resp: CTAB w/o W/R/R, equal excursion, non-laboured, on RA. CV: S1S2 irregularly irregular, w/o M/G/R, cap refill < 3 sec, radial pulses 2+ bilaterally, bilateral lower leg & foot with vascular skin changes. GI: Abdomen soft, nontender, positive bowel sounds. Musculoskeletal: Ecchymosis to left anterior chest/shoulder TTP, LUE in sling. Left knee abrasions w/o any evident drainage, erythema or streaking. Neuro: AAOx3. Speech clear & appropriate. Follows simple commands. Impaired sensation from elbows to fingertips bilaterally. Strength to RUE 2-3/5 , hand intrinsics 1/5, telecommunicator strength 1/5; on left telecommunicator strength 4/5 but patient unable to move LUE due to severe left shoulder pain; 5/5 BLE. (Darvin Coles) Medications Current Medications Current Medications Medications (Trade) Dose Ordered Sig/Gabriella Route Start Time Stop Time Status Last Admin (NS Flush) 2 ml BID IV FLUSH 11/30/16 21:00 12/04/16 08:43 (NS Flush) 2 ml UNSCH PRN IVF 11/30/16 20:15 12/02/16 12:52 (Keppra) 500 mg BID PO 12/01/16 10:00 12/04/16 08:41 (Oramorph Sr) 15 mg BID PO 12/01/16 11:00 12/04/16 08:42 (Zyloprim) 300 mg DAILY PO 12/01/16 13:30 12/04/16 08:40 (Symbicort 160-4.5 Inh) 2 puff Q12HR INH 12/01/16 13:30 12/04/16 08:40 (Ferrous Sulfate) 325 mg BID PO 12/01/16 13:30 12/04/16 08:52 Patient Own Medication PT OWN MED: Apremil... BID PO 12/01/16 21:00 Hold (Duragesic 75 Mcg Patch.72 Hr) 1 patch Q3D T-DERMAL 12/02/16 20:00 12/02/16 20:41 (Horton 5-325 Mg) 1 tab Q4H PRN PO 12/02/16 20:00 (Horton 10-325 Mg) 1 tab Q4H PRN PO 12/02/16 20:00 12/04/16 14:08 (Morphine Inj) 4 mg Q3H PRN IV 12/02/16 20:00 12/04/16 08:42 (Narcan Inj) 0.4 mg UNSCH PRN IV 12/02/16 18:45 (Lopressor) 25 mg BID PO 12/02/16 21:00 12/03/16 09:47 Miscellaneous Information 1 1 Q3D T-DERMAL 12/02/16 20:00 12/03/16 10:56 (NS 1000 ml Inj) 1,000 ml @ 65 mls/hr [id number] IV 12/03/16 07:45 12/03/16 14:52 (Darvin Coles) Medical Decision Making MDM Remarks Stable small interhemispheric hemorrhage. Neurologically stable. Mild hyponatremia (Darvin Coles) Plan Plan Remarks Blood pressure control. Continue neuro checks. Repeat head CT if develops new neurological deficits. Okay to start PT & OT from NSGY's perspective. (Darvin Coles) Attending Statement I have personally seen and examined the patient on the date of this note. Pertinent documentation and study results have been reviewed by the undersigned. I have personally developed the treatment plan and performed medical decision making. Agree with findings, exam, and treatment plan as noted above. Neurologic exam remains normal Okay for Lovenox from neurosurgery standpoint Continue to mobilize out of bed as tolerated Follow-up CT scan depending on clinical course and neurologic function. (Frantz Ricks MD) Darvin Coles December 04, 2016 14:44 Frantz Ricks MD December 04, 2016 19:49
[2016-12-04 16:30] VITALS: BP 116/59; PULSE 74; RESP 20; TEMP 97; O2SAT 96
[2016-12-04 20:00] VITALS: BP 108/64; PULSE 76; RESP 18; TEMP 97.8; O2SAT 97
--- NOTE | 2016-12-04 23:31 | HHI.PR ---
Subjective Remarks Patient seen this morning. Sitting up in chair. Says he is feeling better overall. Denies any chest pain or shortness of breath. Objective Vital Signs Date Time Temp Pulse Resp B/P Pulse Ox O2 Delivery O2 Flow Rate FiO2 12/04/16 20:00 97.8 76 18 108/64 97 12/04/16 16:30 97.0 74 20 116/59 96 12/04/16 12:00 96.5 73 18 101/59 97 12/04/16 08:00 96.5 72 20 106/65 97 12/04/16 05:12 97.6 72 17 111/69 99 12/04/16 00:47 97.1 72 17 116/64 99 I/O 12/03/16 12/03/16 12/03/16 12/04/16 12/04/16 12/04/16 07:00 15:00 23:00 07:00 15:00 23:00 Intake Total 120 ml 1439 ml 120 ml 240 ml Output Total 175 ml 200 ml 250 ml 350 ml 300 ml Balance -55 ml 1239 ml -250 ml -230 ml -60 ml Intake Oral 120 ml 420 ml 120 ml 240 ml IV Total 1019 ml Output Urine Total 175 ml 200 ml 250 ml 350 ml 300 ml # Bowel Movements 0 0 Result Diagram: 12/04/1629 12/04/16628 Objective Remarks GENERAL: patient sitting up in chair. Arm in sling..appears comfortable. Alert and oriented 3. SKIN: Warm and dry. HEAD: Normocephalic. EYES: No scleral icterus. No injection or drainage. NECK: Supple, trachea midline. No JVD. CARDIOVASCULAR: Regular rate and rhythm without murmurs, gallops, or rubs. RESPIRATORY: Breath sounds equal bilaterally. No accessory muscle use. GASTROINTESTINAL: Abdomen soft, non-tender, nondistended. MUSCULOSKELETAL: No cyanosis, or edema. left shoulder with generalized swelling , stiffness, muscle spasmimproved. Left arm in sling. BACK: Nontender without obvious deformity. No CVA tenderness. A/P Assessment and Plan //Trip and fall, no syncope. //Closed head injury with traumatic subarachnoid bleed. CT head as above Neurosurgery following. Appreciate assistance. -Physical therapy and occupational therapy appreciated Continue narcotic pain medicines. Patient is on narcotics at home. -5/2. Hypotension on fentanyl. Decrease fentanyl. Patient will likely need rehabilitation placement. -/3. Blood pressure improved. Continue on current narcotic regimen. //Permanent atrial fibrillation. -Continue metoprolol for rate control. Off anticoagulation due to intracranial bleed. //Hypertension. -12/03. Low blood pressure in the morning. Decrease pain medication, small fluid bolus with improvement. Continue to monitor and adjust medications as necessary. //Left shoulder injury -Suspect rotator cuff tear. Appreciate OT and PT assistance. -12/03 -induration and firmness of tissue around left shoulder. No crepitus. Even though x-ray has been done, this was a poor study. Patient does have leukocytosis. CT shoulder ordered to rule out infection/fracture/hematoma. -12/04. Reviewed CT which shows left distal clavicular fracture. Or so discussed with patient. Nonoperative management. //Leukocytosis. Likely secondary to pain/distress. No fevers. improving.We' ll continue to monitor for signs of infection. //Constipation. Laxatives ordered again. Monitor. Prophylaxis. Avoid anticoagulation due to intracranial bleed. Discharge Planning physical therapy and occupational therapy consult ordered he would likely benefit from SNF as he has pre-existing right sided weakness, now with left shoulder injury. follow-up physical therapy recommendations. Harish Menezes MD December 04, 2016 23:31
[2016-12-05 01:18] VITALS: BP 115/72; PULSE 77; RESP 18; TEMP 97.6; O2SAT 96
[2016-12-05 05:44] VITALS: BP 143/82; PULSE 63; RESP 16; TEMP 97.4; O2SAT 96
[2016-12-05 08:02] VITALS: BP 118/67; PULSE 66; RESP 20; TEMP 96.1; O2SAT 96
[2016-12-05] MEDS: FERROUS SULFATE 325 MG (65 MG ELEMENTAL IRON) TAB PO SCH (08:58)
[2016-12-05] MEDS: levETIRAcetam 500 MG TAB PO SCH (08:59)
[2016-12-05] MEDS: MORPHINE SULFATE 15 MG CONTROLLED RELEASE TAB PO SCH (09:00)
[2016-12-05] MEDS: METOPROLOL TARTRATE 25 MG TAB PO SCH (09:00)
[2016-12-05] MEDS: ALLOPURINOL 300 MG TAB PO SCH (09:00)
[2016-12-05] MEDS: SODIUM CHLORIDE 0.9% FLUSH 10 ML FLUSH IV FLUSH SCH (09:00)
[2016-12-05] MEDS: BUDESONIDE-FORMOTEROL 160/4.5 MCG INHALER INH SCH (09:01)
--- NOTE | 2016-12-05 15:56 | HHI.DS ---
Discharge Summary Admission Date Nov 30, 2016 at 20:09 Discharge Date: December 05, 2016 Admitting Diagnosis intracranial bleed s/p fall (1) Fracture of clavicle, left, closed ICD Code: S42.002A (2) ICH (intracerebral hemorrhage) ICD Code: I61.9 Procedures none Brief History - From Admission 71 y/o man with chronic a-fib tripped over parking lot block, fell and hit his head and shoulder in [place]. CT Head with moderate amount intrahemispheric blood between frontal lobes. No shift or compression. Stopped taking his coumadin over one week ago. No LOC, syncope. CT head with blood in the Transferred to [facility] for further evaluation. Neck and shoulder xrays no acute injury. Numerous old cervical spine problems, hardware unmoved, nothing acute on neck CT scan. INR 1.0. He specifically stopped taking his coumadin because he was afraid of bleeding from a fall. He has chronic upper extremity weakness due to prior injuries, nothing new. CBC/BMP: 12/04/16 0629 12/04/16 0629 Significant Findings Laboratory Tests Test 12/03/16 12/04/16 04:04 06:29 White Blood Count 15.9 TH/MM3 11.3 TH/MM3 (4.0-11.0) (4.0-11.0) Neutrophils (%) (Auto) 78.8 % (16.0-70.0) Monocytes (%) (Auto) 9.0 % (0.0-8.0) 12.2 % (0.0-8.0) Neutrophils # (Auto) 12.5 TH/MM3 (1.8-7.7) Monocytes # (Auto) 1.4 TH/MM3 1.4 TH/MM3 (0-0.9) (0-0.9) Sodium Level 135 MEQ/L 135 MEQ/L (136-145) (136-145) Estimat Glomerular Filtration 77 ML/MIN (>89) Rate Random Glucose 107 MG/DL (74-106) Eosinophils (%) (Auto) 4.8 % (0.0-4.0) Eosinophils # (Auto) 0.5 TH/MM3 (0-0.4) Albumin 2.6 GM/DL (3.4-5.0) Imaging Last Impressions Upper Extremity CT 12/03/16 0000 Signed Impressions: Service Date/Time: Saturday, December 03, 2016 19:11 - CONCLUSION: Acute fracturing of the distal clavicle approximately 1.8 cm proximal to the distal aspect of the clavicle. The acromioclavicular joint remains aligned. Isael Mata MD Shoulder X-Ray 12/01/16 0000 Signed Impressions: Service Date/Time: Thursday, December 01, 2016 15:03 - CONCLUSION: No definite fracture is seen for technique. Mohit Hunt MD Head CT 12/01/16 0000 Signed Impressions: Service Date/Time: Thursday, December 01, 2016 11:44 - CONCLUSION: 4 mm thick left paramidline parietal extra-axial hemorrhage along the falx. Lalito Horne MD Chest X-Ray 11/30/16 194 Signed Impressions: Service Date/Time: Wednesday, November 30, 2016 19:54 - CONCLUSION: No acute cardiopulmonary disease. Mohit Hunt MD PE at Discharge GENERAL: patient sitting up in chair at bedside. Appears comfortable. SKIN: Warm and dry. HEAD: Normocephalic. EYES: No scleral icterus. No injection or drainage. NECK: Supple, trachea midline. No JVD . CARDIOVASCULAR: Regular rate and rhythm without murmurs, gallops, or rubs. RESPIRATORY: Breath sounds equal bilaterally. No accessory muscle use. GASTROINTESTINAL: Abdomen soft, non-tender, nondistended. MUSCULOSKELETAL: No cyanosis, or edema. left arm in sling. BACK: Nontender without obvious deformity. No CVA tenderness. Pt update on day of discharge patient says he is feeling well. Pain is controlled. Feels like going to rehabilitation. Hospital Course Patient had CT, showing bleed with her fall seen hemorrhage as above. Head CT was stable. Neurologically stable during hospitalization. Neurosurgery followed, and will need a follow-up with neurosurgery within 1 week of discharge. Patient did develop constipation which improved. Patient with left shoulder injury, found to be left clavicle fracture. Orthopedics was consult that, placed patient in sling. For problem-based summary from most recent progress note, please see below. //Trip and fall, no syncope. //Closed head injury with traumatic subarachnoid bleed. CT head as above Neurosurgery following. Appreciate assistance. -Physical therapy and occupational therapy appreciated Continue narcotic pain medicines. Patient is on narcotics at home. -12/03. Hypotension on fentanyl. Decrease fentanyl. Patient will likely need rehabilitation placement. -/. Blood pressure improved. Continue on current narcotic regimen. //Permanent atrial fibrillation. -Continue metoprolol for rate control. Off anticoagulation due to intracranial bleed. //Hypertension. -12/03. Low blood pressure in the morning. Decrease pain medication, small fluid bolus with improvement. Continue to monitor and adjust medications as necessary. //Left shoulder injury -Suspect rotator cuff tear. Appreciate OT and PT assistance. -12/03 -induration and firmness of tissue around left shoulder. No crepitus. Even though x-ray has been done, this was a poor study. Patient does have leukocytosis. CT shoulder ordered to rule out infection/fracture/hematoma. -12/04. Reviewed CT which shows left distal clavicular fracture. Or so discussed with patient. Nonoperative management. //Leukocytosis. Likely secondary to pain/distress. No fevers. improving.We' ll continue to monitor for signs of infection. //Constipation. Laxatives ordered again. Monitor. Prophylaxis. Avoid anticoagulation due to intracranial bleed. Discharge Planning physical therapy and occupational therapy consult ordered he would likely benefit from SNF as he has pre-existing right sided weakness, now with left shoulder injury. follow-up physical therapy recommendations. Pt Condition on Discharge: Stable Discharge Disposition: Rehab Inpatient Discharge Time: <= 30 minutes Discharge Instructions DIET: Follow Instructions for: Heart Healthy Diet Activities you can perform: Regular-No Restrictions, See Additionl Instruction Other Activity Instructions: left clavicle fracture. no use of left shoulder, no lifting. patient has baseline Right sided weakness. up with supervision. Follow up Referrals: Neurology - 1 Week with Frantz Ricks MD PCP Follow-up - 1 Week with [facility] New Medications: Gabapentin (Gabapentin) 100 Mg Cap 100 MG PO TID Pain Management #90 Ref 0 CAP Oxycodone (Oxycodone) 5 Mg Tab 5 MG PO Q4H PRN PAIN #42 Ref 0 TAB Fentanyl Patch 72 HR (Duragesic Patch 72 HR) 75 Mcg/Hr Patch 1 PATCH T-DERMAL Q3D Pain Management #2 PATCH Levetiracetam (Keppra) 500 Mg Tab 500 MG PO BID prophylaxis Days 30 TAB Metoprolol Tartrate (Metoprolol Tartrate) 25 Mg Tab 25 MG PO BID afib Days 30 TAB Continued Medications: Allopurinol (Allopurinol) 300 Mg Tab 300 MG PO DAILY Gout #30 Ref 0 TAB Apremilast (Otezla) 30 Mg Tab 30 MG PO BID Psoriasis Budesonide-Formoterol Inh (Symbicort Inh) 160-4.5 Mcg/Act Aero 2 PUFF INH Q12HR #1 Ref 0 INHALER Emollient (Aquaphor) 1 Oin Oin 1 APPLIC TOP TID PRN Dry skin/Psoriasis Ferrous Sulfate (Ferrous Sulfate) 325 Mg Tab 325 MG PO BID Nutritional Supplement #30 Ref 0 TAB Fluoxetine (Prozac) 20 Mg Cap 60 MG PO DAILY #30 Ref 0 CAP Folic Acid (Folate) 1 Mg Tab 1 MG PO DAILY Nutritional Supplement Ref 0 TAB Ipratropium-Albuterol Inh (Combivent Respimat Inh) 20-100 Group Home/Act Aero 1 PUFF INH QID Shortness of Breath #1 Ref 0 INHALER Levothyroxine (Levothyroxine) 125 Mcg Tab 125 MCG PO DAILY Thyroid #30 Ref 0 TAB Minocycline (Minocycline) 100 Mg Cap 100 MG PO BID Mgmt Bacterial Infection Ref 0 CAP Morphine ER (Morphine ER) 15 Mg Tab 15 MG PO BID Pain Management #14 Ref 0 TAB (This prescription has been renewed) Omeprazole (Omeprazole) 20 Mg Tab 40 MG PO DAILY #30 Ref 0 TAB Potassium Chloride ER (Potassium Chloride ER) 20 Meq Tab 20 MEQ PO DAILY Electrolyte Replacement #30 Ref 0 TAB Prazosin (Minipress) 1 Mg Cap 1 MG PO HS *Hold if Blood Pressure less than 90/60Do not take with narcotic medications to avoid hypotension* PRN PROSTATE #60 Ref 0 CAP Discontinued Medications: Gabapentin (Gabapentin) 600 Mg Tab 600 MG PO TID #90 Ref 0 TAB Metoprolol Tartrate (Lopressor) 50 Mg Tab 25 MG PO DAILY #15 Ref 0 TAB Oxycodone (Oxycodone) 10 Mg Tab 10 MG PO BID Pain Management #60 Ref 0 TAB Harish Menezes MD December 05, 2016 15:56
[2016-12-17] MEDS ORDERED: OMEP20TA PO (10:30)
[2016-12-17] MEDS ORDERED: NEUR300C PO (10:30)
[2016-12-17] MEDS ORDERED: ALLO300T2 PO (10:30)
[2016-12-17] MEDS ORDERED: FLUO20CA4 PO (10:30)
[2016-12-17] MEDS ORDERED: SYMB160A INH (10:30)
[2016-12-17] MEDS ORDERED: DOCU1CAP39 PO (10:30)
[2016-12-17] MEDS ORDERED: LEVO125T4 PO (10:30)
[2016-12-17] MEDS ORDERED: HYDR-3583 PO (10:30)
[2016-12-17] MEDS ORDERED: MORP1TAB24 PO (10:30)
[2016-12-17] MEDS ORDERED: THERTAB15 PO (10:30)
[2016-12-17] MEDS ORDERED: LEVE500 PO (10:30)
== END 2016-12-05 11:32 | DRG 86 ==
LOC: NEPC 18:48 → NEDA 20:09 → NEDH 12-01 00:31 → N03B 12-01 06:07 → N05A 12-03 14:31
PROVIDERS: ADMIT Internal Medicine; ATTEND Internal Medicine
DX: S06.6X0A Traumatic subarachnoid hemorrhage without loss of consciousness, initial encounter (principal); K59.2 Neurogenic bowel, not elsewhere classified; I48.2 Chronic atrial fibrillation; S42.032A Displaced fracture of lateral end of left clavicle, initial encounter for closed fracture; J44.9 Chronic obstructive pulmonary disease, unspecified; I10 Essential (primary) hypertension; W01.0XXA Fall on same level from slipping, tripping and stumbling without subsequent striking against object, initial encounter; Y92.481 Parking lot as the place of occurrence of the external cause; M10.9 Gout, unspecified; N31.9 Neuromuscular dysfunction of bladder, unspecified; L40.9 Psoriasis, unspecified; E03.9 Hypothyroidism, unspecified; N40.0 Benign prostatic hyperplasia without lower urinary tract symptoms; K59.00 Constipation, unspecified
CPT/HCPCS: 70450; 71010; 73030; 73201; 80048; 80069; 81001; 83735; 85025; 85610; 85730; 86850; 86900; 86901; 87641; 93005; J0131; J2270; J2405; J3010; J7030; J7040; Q9967